=== PATIENT | female | born 1940 | race Caucasian/White ===

== ENCOUNTER → 2016-07-26 | Outpatient (CLI) | payer MEDICARE ==
[~2016-07-26] MED LIST: LISI-170 PO; LOVA10TA PO; MECL-76 PO; PROM25TA10 PO; WARF2.5T PO; ZOLP10TA PO
== END | disposition home or self-care (01) ==
LOC: WOUND 08:08
PROVIDERS: ATTEND Podiatrist Foot & Ankle Surgery
DX: I87.2 Venous insufficiency (chronic) (peripheral) (principal); L97.821 Non-pressure chronic ulcer of other part of left lower leg limited to breakdown of skin; L97.811 Non-pressure chronic ulcer of other part of right lower leg limited to breakdown of skin; K21.9 Gastro-esophageal reflux disease without esophagitis; I10 Essential (primary) hypertension; E78.00 Pure hypercholesterolemia, unspecified; J45.909 Unspecified asthma, uncomplicated; Z86.73 Personal history of transient ischemic attack (TIA), and cerebral infarction without residual deficits
CPT/HCPCS: 11042; 97597; G0463; WOU0463

== ENCOUNTER → 2016-08-01 | Outpatient (CLI) | payer MEDICARE | END | disposition home or self-care (01) | LOC: CFH 07:03 | PROVIDERS: ATTEND Podiatrist Foot & Ankle Surgery | DX: I86.8 Varicose veins of other specified sites (principal); K21.9 Gastro-esophageal reflux disease without esophagitis; L97.322 Non-pressure chronic ulcer of left ankle with fat layer exposed; L97.312 Non-pressure chronic ulcer of right ankle with fat layer exposed | CPT/HCPCS: 93922; 93925; 93970 ==

== ENCOUNTER → 2016-08-02 | Outpatient (CLI) | payer MEDICARE | END | disposition home or self-care (01) | LOC: WOUND 09:05 | PROVIDERS: ATTEND Podiatrist Foot & Ankle Surgery | DX: I87.333 Chronic venous hypertension (idiopathic) with ulcer and inflammation of bilateral lower extremity (principal); L97.822 Non-pressure chronic ulcer of other part of left lower leg with fat layer exposed; L97.812 Non-pressure chronic ulcer of other part of right lower leg with fat layer exposed; J45.909 Unspecified asthma, uncomplicated; E78.00 Pure hypercholesterolemia, unspecified; Z86.73 Personal history of transient ischemic attack (TIA), and cerebral infarction without residual deficits | CPT/HCPCS: 11042; 97597 ==

== ENCOUNTER → 2016-08-09 | Outpatient (CLI) | payer MEDICARE | END | disposition home or self-care (01) | LOC: WOUND 08:30 | PROVIDERS: ATTEND Podiatrist Foot & Ankle Surgery | DX: I87.333 Chronic venous hypertension (idiopathic) with ulcer and inflammation of bilateral lower extremity (principal); L97.812 Non-pressure chronic ulcer of other part of right lower leg with fat layer exposed; L97.822 Non-pressure chronic ulcer of other part of left lower leg with fat layer exposed; J45.909 Unspecified asthma, uncomplicated; E78.00 Pure hypercholesterolemia, unspecified; Z86.73 Personal history of transient ischemic attack (TIA), and cerebral infarction without residual deficits | CPT/HCPCS: 11042 ==

== ENCOUNTER → 2016-08-16 | Outpatient (CLI) | payer MEDICARE | END | disposition home or self-care (01) | LOC: WOUND 09:00 | PROVIDERS: ATTEND Podiatrist Foot & Ankle Surgery | DX: I87.333 Chronic venous hypertension (idiopathic) with ulcer and inflammation of bilateral lower extremity (principal); L97.812 Non-pressure chronic ulcer of other part of right lower leg with fat layer exposed; L97.822 Non-pressure chronic ulcer of other part of left lower leg with fat layer exposed; J45.909 Unspecified asthma, uncomplicated; E78.00 Pure hypercholesterolemia, unspecified; K21.9 Gastro-esophageal reflux disease without esophagitis; Z86.73 Personal history of transient ischemic attack (TIA), and cerebral infarction without residual deficits | CPT/HCPCS: 11042 ==

== ENCOUNTER → 2016-08-23 | Outpatient (CLI) | payer MEDICARE | END | disposition home or self-care (01) | LOC: WOUND 08:15 | PROVIDERS: ATTEND Podiatrist Foot & Ankle Surgery | DX: I87.333 Chronic venous hypertension (idiopathic) with ulcer and inflammation of bilateral lower extremity (principal); L97.812 Non-pressure chronic ulcer of other part of right lower leg with fat layer exposed; L97.822 Non-pressure chronic ulcer of other part of left lower leg with fat layer exposed; J45.909 Unspecified asthma, uncomplicated; E78.00 Pure hypercholesterolemia, unspecified; Z86.73 Personal history of transient ischemic attack (TIA), and cerebral infarction without residual deficits | CPT/HCPCS: 15271; Q4172 ==

== ENCOUNTER → 2016-08-30 | Outpatient (CLI) | payer MEDICARE | END | disposition home or self-care (01) | LOC: WOUND 08:15 | PROVIDERS: ATTEND Podiatrist Foot & Ankle Surgery | DX: I87.332 Chronic venous hypertension (idiopathic) with ulcer and inflammation of left lower extremity (principal); L97.822 Non-pressure chronic ulcer of other part of left lower leg with fat layer exposed; J45.909 Unspecified asthma, uncomplicated; E78.00 Pure hypercholesterolemia, unspecified; K21.9 Gastro-esophageal reflux disease without esophagitis; Z86.73 Personal history of transient ischemic attack (TIA), and cerebral infarction without residual deficits | CPT/HCPCS: 15271; Q4172 ==

== ENCOUNTER → 2016-09-06 | Outpatient (CLI) | payer MEDICARE | END | disposition home or self-care (01) | LOC: WOUND 08:24 | PROVIDERS: ATTEND Podiatrist Foot & Ankle Surgery | DX: I87.332 Chronic venous hypertension (idiopathic) with ulcer and inflammation of left lower extremity (principal); L97.822 Non-pressure chronic ulcer of other part of left lower leg with fat layer exposed; Z86.73 Personal history of transient ischemic attack (TIA), and cerebral infarction without residual deficits; E78.00 Pure hypercholesterolemia, unspecified; K21.9 Gastro-esophageal reflux disease without esophagitis; J45.909 Unspecified asthma, uncomplicated | CPT/HCPCS: 15271; Q4172 ==

== ENCOUNTER → 2016-09-13 | Outpatient (CLI) | payer MEDICARE | END | disposition home or self-care (01) | LOC: WOUND 08:21 | PROVIDERS: ATTEND Podiatrist Foot & Ankle Surgery | DX: I87.331 Chronic venous hypertension (idiopathic) with ulcer and inflammation of right lower extremity (principal); L97.812 Non-pressure chronic ulcer of other part of right lower leg with fat layer exposed; I10 Essential (primary) hypertension; K21.9 Gastro-esophageal reflux disease without esophagitis; E78.00 Pure hypercholesterolemia, unspecified; J45.909 Unspecified asthma, uncomplicated; Z86.73 Personal history of transient ischemic attack (TIA), and cerebral infarction without residual deficits | CPT/HCPCS: G0463; WOU0463 ==

== ENCOUNTER → 2016-10-15 | Outpatient (CLI) | payer MEDICARE | END | disposition home or self-care (01) | LOC: WOUND 15:47 | PROVIDERS: ATTEND Internal Medicine Cardiovascular Disease | DX: I87.332 Chronic venous hypertension (idiopathic) with ulcer and inflammation of left lower extremity (principal); L97.821 Non-pressure chronic ulcer of other part of left lower leg limited to breakdown of skin; J45.909 Unspecified asthma, uncomplicated; E78.00 Pure hypercholesterolemia, unspecified; I10 Essential (primary) hypertension; Z86.73 Personal history of transient ischemic attack (TIA), and cerebral infarction without residual deficits; K21.9 Gastro-esophageal reflux disease without esophagitis | CPT/HCPCS: 36475 ==

== ENCOUNTER → 2016-10-17 | Outpatient (CLI) | payer MEDICARE | END | disposition home or self-care (01) | LOC: CVU 12:45 | PROVIDERS: ATTEND Internal Medicine Cardiovascular Disease | DX: I87.2 Venous insufficiency (chronic) (peripheral) (principal) | CPT/HCPCS: 93971 ==

== ENCOUNTER → 2016-12-25 | Outpatient (CLI) | payer MEDICARE | END | disposition home or self-care (01) | LOC: WOUND 14:42 | PROVIDERS: ATTEND Internal Medicine Infectious Disease | DX: I87.331 Chronic venous hypertension (idiopathic) with ulcer and inflammation of right lower extremity (principal); L97.811 Non-pressure chronic ulcer of other part of right lower leg limited to breakdown of skin; S51.812A Laceration without foreign body of left forearm, initial encounter; Z79.52 Long term (current) use of systemic steroids; Z86.73 Personal history of transient ischemic attack (TIA), and cerebral infarction without residual deficits; X58.XXXA Exposure to other specified factors, initial encounter; Y93.89 Activity, other specified; Y92.89 Other specified places as the place of occurrence of the external cause; Y99.8 Other external cause status | CPT/HCPCS: G0463; WOU0463 ==

== ENCOUNTER → 2016-12-31 | Outpatient (CLI) | payer MEDICARE ==
[~2016-12-31] MED LIST changes: +GADOBUTROL 7.5 MMOL/7.5 ML PFS ONE
== END | disposition home or self-care (01) ==
LOC: RAD 13:05
DX: D44.7 Neoplasm of uncertain behavior of aortic body and other paraganglia (principal); E04.1 Nontoxic single thyroid nodule
CPT/HCPCS: 70543; A9585

== ENCOUNTER → 2017-01-15 | Outpatient (CLI) | payer MEDICARE ==
[~2017-01-15] MED LIST changes: -GADOBUTROL 7.5 MMOL/7.5 ML PFS ONE
== END | disposition home or self-care (01) ==
LOC: WOUND 10:56
PROVIDERS: ATTEND Internal Medicine
DX: I87.331 Chronic venous hypertension (idiopathic) with ulcer and inflammation of right lower extremity (principal); L97.811 Non-pressure chronic ulcer of other part of right lower leg limited to breakdown of skin; Z79.52 Long term (current) use of systemic steroids; Z86.73 Personal history of transient ischemic attack (TIA), and cerebral infarction without residual deficits
CPT/HCPCS: G0463; WOU0463

== ENCOUNTER → 2017-02-12 | Outpatient (CLI) | payer MEDICARE | END | disposition home or self-care (01) | LOC: WOUND 10:30 | PROVIDERS: ATTEND Internal Medicine | DX: S81.812D Laceration without foreign body, left lower leg, subsequent encounter (principal); I10 Essential (primary) hypertension; J45.909 Unspecified asthma, uncomplicated; E78.00 Pure hypercholesterolemia, unspecified; Z86.73 Personal history of transient ischemic attack (TIA), and cerebral infarction without residual deficits; X58.XXXD Exposure to other specified factors, subsequent encounter | CPT/HCPCS: G0463; WOU0463 ==

== ENCOUNTER → 2017-02-19 | Outpatient (CLI) | payer MEDICARE | END | disposition home or self-care (01) | LOC: WOUND 10:24 | PROVIDERS: ATTEND Internal Medicine | DX: S81.812D Laceration without foreign body, left lower leg, subsequent encounter (principal); I10 Essential (primary) hypertension; E78.00 Pure hypercholesterolemia, unspecified; J45.909 Unspecified asthma, uncomplicated; Z86.73 Personal history of transient ischemic attack (TIA), and cerebral infarction without residual deficits; X58.XXXD Exposure to other specified factors, subsequent encounter | CPT/HCPCS: 97597 ==

== ENCOUNTER → 2017-04-11 | Outpatient (CLI) | payer MEDICARE | END | disposition home or self-care (01) | LOC: CFH 08:40 → EDSTATUS 09:00 | PROVIDERS: ATTEND Physician Assistant | DX: I08.1 Rheumatic disorders of both mitral and tricuspid valves (principal); I10 Essential (primary) hypertension; J45.909 Unspecified asthma, uncomplicated; Z79.01 Long term (current) use of anticoagulants; Z86.73 Personal history of transient ischemic attack (TIA), and cerebral infarction without residual deficits | CPT/HCPCS: 93306 ==

== ENCOUNTER → 2017-06-14 | Outpatient (CLI) | payer MEDICARE ==
[~2017-06-14] MED LIST changes: +GADOBUTROL 7.5 MMOL/7.5 ML PFS ONE
== END | disposition home or self-care (01) ==
LOC: CFH 08:58
PROVIDERS: ATTEND Family Medicine
DX: G31.89 Other specified degenerative diseases of nervous system (principal); Z86.73 Personal history of transient ischemic attack (TIA), and cerebral infarction without residual deficits
CPT/HCPCS: 70553; 82565; A9585

== ENCOUNTER → 2017-08-21 | Outpatient (CLI) | payer MEDICARE ==
[~2017-08-21] MED LIST changes: -GADOBUTROL 7.5 MMOL/7.5 ML PFS ONE
== END | disposition home or self-care (01) ==
LOC: CFH 07:20
PROVIDERS: ATTEND Family Medicine
DX: M50.30 Other cervical disc degeneration, unspecified cervical region (principal); M48.02 Spinal stenosis, cervical region; M75.122 Complete rotator cuff tear or rupture of left shoulder, not specified as traumatic; M75.52 Bursitis of left shoulder
CPT/HCPCS: 72141

== ENCOUNTER → 2017-10-08 | Outpatient (CLI) | payer MEDICARE | END | disposition home or self-care (01) | LOC: WOUND 14:56 | PROVIDERS: ATTEND Nurse Practitioner Family | DX: I87.331 Chronic venous hypertension (idiopathic) with ulcer and inflammation of right lower extremity (principal); L97.212 Non-pressure chronic ulcer of right calf with fat layer exposed; J45.909 Unspecified asthma, uncomplicated; E78.00 Pure hypercholesterolemia, unspecified; Z86.73 Personal history of transient ischemic attack (TIA), and cerebral infarction without residual deficits; Z79.01 Long term (current) use of anticoagulants | CPT/HCPCS: 97597; 97598; G0463; WOU0463 ==

== ENCOUNTER → 2017-10-15 | Outpatient (CLI) | payer MEDICARE | END | disposition home or self-care (01) | LOC: WOUND 09:10 | PROVIDERS: ATTEND Internal Medicine Infectious Disease | DX: I87.331 Chronic venous hypertension (idiopathic) with ulcer and inflammation of right lower extremity (principal); L97.212 Non-pressure chronic ulcer of right calf with fat layer exposed; E78.00 Pure hypercholesterolemia, unspecified; J45.909 Unspecified asthma, uncomplicated; Z86.73 Personal history of transient ischemic attack (TIA), and cerebral infarction without residual deficits; Z79.01 Long term (current) use of anticoagulants | CPT/HCPCS: 11042; 11045 ==

== ENCOUNTER → 2017-10-22 | Outpatient (CLI) | payer MEDICARE | END | disposition home or self-care (01) | LOC: WOUND 08:46 | PROVIDERS: ATTEND Nurse Practitioner Family | DX: I87.331 Chronic venous hypertension (idiopathic) with ulcer and inflammation of right lower extremity (principal); L97.212 Non-pressure chronic ulcer of right calf with fat layer exposed; E78.00 Pure hypercholesterolemia, unspecified; J45.909 Unspecified asthma, uncomplicated; Z79.01 Long term (current) use of anticoagulants; Z86.73 Personal history of transient ischemic attack (TIA), and cerebral infarction without residual deficits | CPT/HCPCS: 15271; Q4172 ==

== ENCOUNTER → 2017-10-29 | Outpatient (CLI) | payer MEDICARE | END | disposition home or self-care (01) | LOC: WOUND 08:31 | PROVIDERS: ATTEND Nurse Practitioner Family | DX: I87.331 Chronic venous hypertension (idiopathic) with ulcer and inflammation of right lower extremity (principal); L97.212 Non-pressure chronic ulcer of right calf with fat layer exposed; E78.00 Pure hypercholesterolemia, unspecified; J45.909 Unspecified asthma, uncomplicated; Z79.01 Long term (current) use of anticoagulants; Z86.73 Personal history of transient ischemic attack (TIA), and cerebral infarction without residual deficits | CPT/HCPCS: 97597 ==

== ENCOUNTER → 2017-11-12 | Outpatient (CLI) | payer MEDICARE | END | disposition home or self-care (01) | LOC: WOUND 08:25 | PROVIDERS: ATTEND Internal Medicine Infectious Disease | DX: I87.331 Chronic venous hypertension (idiopathic) with ulcer and inflammation of right lower extremity (principal); L97.212 Non-pressure chronic ulcer of right calf with fat layer exposed; J45.909 Unspecified asthma, uncomplicated; E78.00 Pure hypercholesterolemia, unspecified; Z86.73 Personal history of transient ischemic attack (TIA), and cerebral infarction without residual deficits; Z79.01 Long term (current) use of anticoagulants | CPT/HCPCS: G0463; WOU0463 ==

== ENCOUNTER → 2017-11-19 | Outpatient (CLI) | payer MEDICARE | END | disposition home or self-care (01) | LOC: WOUND 08:37 | PROVIDERS: ATTEND Nurse Practitioner Family | DX: I87.331 Chronic venous hypertension (idiopathic) with ulcer and inflammation of right lower extremity (principal); L97.212 Non-pressure chronic ulcer of right calf with fat layer exposed; J45.909 Unspecified asthma, uncomplicated; E78.00 Pure hypercholesterolemia, unspecified; Z86.73 Personal history of transient ischemic attack (TIA), and cerebral infarction without residual deficits | CPT/HCPCS: 97597 ==

== ENCOUNTER → 2017-12-02 | Outpatient (CLI) | payer MEDICARE | END | disposition home or self-care (01) | LOC: CVU 08:43 | PROVIDERS: ATTEND Family Medicine | DX: I73.9 Peripheral vascular disease, unspecified (principal); I10 Essential (primary) hypertension | CPT/HCPCS: 93922 ==

== ENCOUNTER 2018-03-08 08:03 | Emergency (ER) | payer MEDICARE ==
[~2018-03-08] VITALS: Ht 162.6 cm; Wt 54.3 kg
[2018-03-08 09:06] LABS: BASOPHILS # (AUTO) 0.02 x10^3/uL (0-0.1); BASOPHILS % (AUTO) 0 % (0-1); EOSINOPHILS # (AUTO) 0.07 x10^3/uL (0-0.4); EOSINOPHILS % (AUTO) 1 % (1-7); LYMPHOCYTES # (AUTO) 0.48 x10^3/uL (1-3.4); LYMPHOCYTES % (AUTO) 10 % (22-44); MD NO; MEAN CORPUSCULAR HEMOGLOBIN 23.1 pg (27.0-34.8); MEAN CORPUSCULAR HGB CONC 31.3 g/dL (32.4-35.8); MEAN CORPUSCULAR VOLUME 73.9 fL (80-100); MEAN PLATELET VOLUME 6.8 fL (7.4-10.4); MONOCYTES # (AUTO) 0.53 x10^3/uL (0.2-0.8); MONOCYTES % (AUTO) 11 % (2-9); NEUTROPHILS # (AUTO) 3.72 x10^3/uL (1.8-6.8); NEUTROPHILS % (AUTO) 77 % (42-75); PLATELET COUNT 430 x10^3/uL (130-400); RED BLOOD COUNT 4.15 x10^6/uL (3.82-5.3); RED CELL DISTRIBUTION WIDTH 19.4 % (9.6-15.2)
[2018-03-08 09:11] LABS: INTERNATIONAL NORMALIZED RATIO 2.85 (0.93-1.1)
[2018-03-08 09:13] LABS: ALBUMIN 3.3 g/dL (3.4-5.0); ANION GAP 6 mmol/L (5-15); CALCIUM 8.1 mg/dL (8.5-10.1); CHLORIDE 103 mmol/L (98-107)
[2018-03-08 09:19] LABS: CREATININE 0.77 mg/dL (0.55-1.02); TROPONIN I < 0.015 ng/mL (0.000-0.045)
[2018-03-08 09:27] VITALS: BP 160/78
== END 2018-03-08 10:32 | disposition home or self-care (01) ==
LOC: ED 08:49
DX: B02.33 Zoster keratitis (principal); D50.0 Iron deficiency anemia secondary to blood loss (chronic); I10 Essential (primary) hypertension; Z86.73 Personal history of transient ischemic attack (TIA), and cerebral infarction without residual deficits
CPT/HCPCS: 36415; 71045; 80048; 82040; 84484; 85025; 85610; 93005; 99284

== ENCOUNTER 2018-03-09 21:31 | Inpatient (IN) | payer MEDICARE ==
[~2018-03-09] VITALS: Ht 162.6 cm; Wt 60.1 kg
[2018-03-09] MEDS ORDERED: ONDANSETRON 2MG/ML, 2ML ONE (22:14)
[2018-03-09] MEDS ORDERED: MORPHINE SULFATE 4 MG/ML, 1ML ONE (22:15)
[2018-03-09] MEDS ORDERED: ONDANSETRON 2MG/ML, 2ML IVPush ONE (22:30)
[2018-03-09] MEDS ORDERED: SODIUM CHLORIDE FLUSH 10ML SYR IVF ONE (22:30)
[2018-03-09] MEDS ORDERED: MORPHINE SULFATE 4 MG/ML, 1ML IVPush PRN (22:30)
[2018-03-09 22:32] LABS: BASOPHILS # (AUTO) 0.04 x10^3/uL (0-0.1); BASOPHILS % (AUTO) 0 % (0-1); EOSINOPHILS % (AUTO) 1 % (1-7); LYMPHOCYTES # (AUTO) 0.45 x10^3/uL (1-3.4); LYMPHOCYTES % (AUTO) 5 % (22-44); MD NO; MEAN CORPUSCULAR HEMOGLOBIN 23.3 pg (27.0-34.8); MEAN CORPUSCULAR HGB CONC 31.6 g/dL (32.4-35.8); MEAN CORPUSCULAR VOLUME 73.8 fL (80-100); MEAN PLATELET VOLUME 7.4 fL (7.4-10.4); MONOCYTES # (AUTO) 0.53 x10^3/uL (0.2-0.8); MONOCYTES % (AUTO) 5 % (2-9); NEUTROPHILS # (AUTO) 8.81 x10^3/uL (1.8-6.8); NEUTROPHILS % (AUTO) 89 % (42-75); PLATELET COUNT 390 x10^3/uL (130-400); RED BLOOD COUNT 4.02 x10^6/uL (3.82-5.3); RED CELL DISTRIBUTION WIDTH 18.7 % (9.6-15.2)
[2018-03-09 22:40] LABS: ALANINE AMINOTRANSFERASE 16 U/L (12-78); ALBUMIN 3.1 g/dL (3.4-5.0); ANION GAP 7 mmol/L (5-15); CALCIUM 8.1 mg/dL (8.5-10.1); CHLORIDE 100 mmol/L (98-107)
[2018-03-09 22:43] LABS: ALKALINE PHOSPHATASE 113 U/L (45-117); BILIRUBIN,TOTAL 0.4 mg/dL (0.2-1.0); CREATININE 0.78 mg/dL (0.55-1.02); TOTAL PROTEIN 6.2 g/dL (6.4-8.2)
[2018-03-09 22:46] LABS: TROPONIN I < 0.015 ng/mL (0.000-0.045)
[2018-03-09] MEDS ORDERED: SODIUM CHLORIDE 0.9% 1,000ML IVBOLUS ONE (23:00)
--- NOTE | 2018-03-09 23:08 | NUR ---
PT HAS SHINGLES ( BLISTERS UP 2 DAYS AGO ) TODAY PT HAS NAUSEA WITH VOMITTING WEAKNESS DIARRHEA . PT WAS SEEN FOR SAME ON SATURDAY
[2018-03-09 23:10] LABS: MICROSCOPIC INDICATED
[2018-03-09 23:12] LABS: CULTURE INDICATED? YES
[2018-03-09] MEDS ORDERED: OMNIPAQUE 350 MG/ML, 100ML BOTTLE ONE (23:15)
[2018-03-10] MEDS ORDERED: POLYETHYLENE GLYCOL 17 GM PACKET PO PRN
[2018-03-10] MEDS ORDERED: hydrALAzine 20 MG/ML, 1ML IVPush PRN
[2018-03-10 00:12] LABS: % IRON SATURATION 3 % (20-55); IRON LEVEL 11 mcg/dL (50-170); TOTAL IRON BINDING CAPACITY 369 mcg/dL (250-450)
[2018-03-10] MEDS ORDERED: DEXA0.5E2 PO (00:19)
--- NOTE | 2018-03-10 00:27 | NUR ---
AWAITING ADMIT BED AT THIS TIME
--- NOTE | 2018-03-10 00:51 | NUR ---
SURGICAL FLOOR CALLED FOR UPDATED ON BED. PT ON ISO FOR SHINGLES, THEY NEED TO MOVE PT CURRENTLY IN ROOM THEN CLEAN IT. SURGICAL SUP WILL NOTIFY ED WHEN BED IS READY
--- NOTE | 2018-03-10 02:31 | NUR ---
PT SLEEPING AWAITING ADMIT
--- NOTE | 2018-03-10 03:22 | NUR ---
REPORT CALLED TO SYEDA WAN TO FLOOR WITH TECH
--- NOTE | 2018-03-10 03:39 | NUR ---
Gigi marrufo in [place] - 03/10/18 at 0346 by CESAR Patient/Caregiver given discharge instructions and they have confirmed that they understand the instructions. Patient ambulatory with steady gait.
[2018-03-10 03:49] VITALS: BP 125/73
[2018-03-10] MEDS: SODIUM CHLORIDE 0.9% 1,000 ML IV SCH ×2 (04:40→15:56)
[2018-03-10] MEDS: ACYCLOVIR 800 MG TABLET PO SCH ×6 (05:42→21:00)
[2018-03-10 05:57] LABS: BASOPHILS # (AUTO) 0.02 x10^3/uL (0-0.1); BASOPHILS % (AUTO) 0 % (0-1); EOSINOPHILS # (AUTO) 0.19 x10^3/uL (0-0.4); EOSINOPHILS % (AUTO) 3 % (1-7); LYMPHOCYTES # (AUTO) 0.95 x10^3/uL (1-3.4); LYMPHOCYTES % (AUTO) 13 % (22-44); MD NO; MEAN CORPUSCULAR HEMOGLOBIN 23.3 pg (27.0-34.8); MEAN CORPUSCULAR HGB CONC 31.7 g/dL (32.4-35.8); MEAN CORPUSCULAR VOLUME 73.4 fL (80-100); MEAN PLATELET VOLUME 7.5 fL (7.4-10.4); MONOCYTES # (AUTO) 0.57 x10^3/uL (0.2-0.8); MONOCYTES % (AUTO) 8 % (2-9); NEUTROPHILS # (AUTO) 5.58 x10^3/uL (1.8-6.8); NEUTROPHILS % (AUTO) 76 % (42-75); PLATELET COUNT 333 x10^3/uL (130-400); RED BLOOD COUNT 3.48 x10^6/uL (3.82-5.3); RED CELL DISTRIBUTION WIDTH 19.2 % (9.6-15.2)
[2018-03-10 06:07] LABS: CHLORIDE 104 mmol/L (98-107)
[2018-03-10 06:16] LABS: ALANINE AMINOTRANSFERASE 14 U/L (12-78); ALBUMIN 2.8 g/dL (3.4-5.0); ALKALINE PHOSPHATASE 94 U/L (45-117); ANION GAP 6 mmol/L (5-15); BILIRUBIN,TOTAL 0.4 mg/dL (0.2-1.0); CALCIUM 7.6 mg/dL (8.5-10.1); CREATININE 0.63 mg/dL (0.55-1.02); TOTAL PROTEIN 5.4 g/dL (6.4-8.2)
[2018-03-10] MEDS: METRONIDAZOLE PMX 500MG/100ML 100 ML IV SCH ×3 (06:51→22:51)
[2018-03-10 07:50] VITALS: BP 119/71
[2018-03-10 08:30] LABS: IRON LEVEL 8 mcg/dL (50-170)
[2018-03-10 08:33] LABS: % IRON SATURATION 3 % (20-55); TOTAL IRON BINDING CAPACITY 301 mcg/dL (250-450)
--- NOTE | 2018-03-10 08:50 | NUR ---
Recommend: nectar-thick liquids, clear liquids per Swallow precaution sign posted at bedside. Addendum: 03/10/18 at 1250 by Kassie OSUNA Amended: Links added.
[2018-03-10] MEDS: CEFTRIAXONE PMX 1GM/50ML 50 ML IV SCH (09:29)
[2018-03-10] MEDS: IRON SUCROSE COMPLEX 100MG/5ML IV SCH (09:29)
[2018-03-10] MEDS: ONDANSETRON 2MG/ML, 2ML IVPush PRN ×2 (09:36→17:38)
[2018-03-10 10:31] LABS: FOLATE LEVEL > 20.0 ng/mL (3.1-17.5)
[2018-03-10 10:50] LABS: FREE T4 (FREE THYROXINE) 1.31 ng/dL (0.76-1.46)
[2018-03-10] MEDS ORDERED: DEXAMETHASONE 0.5 MG/5 ML ORAL SOL PO SCH (11:00)
[2018-03-10 12:06] LABS: INTERNATIONAL NORMALIZED RATIO 1.5 (0.93-1.1); PROTHROMBIN TIME 15.7 Seconds (9.6-11.5)
[2018-03-10] MEDS: ONDANSETRON ODT 4 MG PO PRN (12:16)
[2018-03-10] MEDS: PROMETHAZINE 25 MG/ML, 1ML IM PRN ×2 (12:39→20:02)
[2018-03-10] MEDS: GABAPENTIN 100 MG CAPSULE PO SCH ×3 (13:00→21:00)
[2018-03-10 14:22] VITALS: BP 126/75
[2018-03-10] MEDS ORDERED: WARFARIN 7.5 MG TABLET PO-COUM ONE (18:00)
[2018-03-10 19:14] LABS: CLOSTRIDIUM DIFFICILE ANTIGEN NEGATIVE; CLOSTRIDIUM DIFFICILE TOXIN NEGATIVE (Negative)
[2018-03-10 21:00] VITALS: BP 113/58
[2018-03-10] MEDS: LOVASTATIN 40 MG TABLET PO SCH (21:00)
[2018-03-10] MEDS: ZOLPIDEM 10MG TABLET PO SCH (21:00)
[2018-03-11 03:20] VITALS: BP 132/87
[2018-03-11] MEDS: SODIUM CHLORIDE 0.9% 1,000 ML IV SCH (03:34)
[2018-03-11] MEDS: ONDANSETRON 2MG/ML, 2ML IVPush PRN ×3 (03:34→21:27)
[2018-03-11 05:45] LABS: INTERNATIONAL NORMALIZED RATIO 1.57 (0.93-1.1); PROTHROMBIN TIME 16.4 Seconds (9.6-11.5)
[2018-03-11] MEDS: ACYCLOVIR 800 MG TABLET PO SCH ×5 (05:53→21:15)
[2018-03-11] MEDS: GABAPENTIN 100 MG CAPSULE PO SCH ×4 (05:53→21:15)
[2018-03-11] MEDS: METRONIDAZOLE PMX 500MG/100ML 100 ML IV SCH ×3 (05:53→21:27)
[2018-03-11 05:54] LABS: BASOPHILS # (AUTO) 0.03 x10^3/uL (0-0.1); BASOPHILS % (AUTO) 0 % (0-1); EOSINOPHILS # (AUTO) 0.28 x10^3/uL (0-0.4); EOSINOPHILS % (AUTO) 3 % (1-7); LYMPHOCYTES % (AUTO) 12 % (22-44); MD NO; MEAN CORPUSCULAR HEMOGLOBIN 23.5 pg (27.0-34.8); MEAN CORPUSCULAR VOLUME 73.4 fL (80-100); MEAN PLATELET VOLUME 7.7 fL (7.4-10.4); MONOCYTES # (AUTO) 0.71 x10^3/uL (0.2-0.8); MONOCYTES % (AUTO) 8 % (2-9); NEUTROPHILS # (AUTO) 6.81 x10^3/uL (1.8-6.8); NEUTROPHILS % (AUTO) 76 % (42-75); PLATELET COUNT 331 x10^3/uL (130-400); RED CELL DISTRIBUTION WIDTH 19.4 % (9.6-15.2)
[2018-03-11 05:58] LABS: ALBUMIN 2.3 g/dL (3.4-5.0); ANION GAP 6 mmol/L (5-15); CALCIUM 7.2 mg/dL (8.5-10.1); CHLORIDE 108 mmol/L (98-107)
[2018-03-11 06:01] LABS: ALANINE AMINOTRANSFERASE 14 U/L (12-78); ALKALINE PHOSPHATASE 85 U/L (45-117); BILIRUBIN,TOTAL 0.4 mg/dL (0.2-1.0); CREATININE 0.53 mg/dL (0.55-1.02); TOTAL PROTEIN 4.9 g/dL (6.4-8.2)
[2018-03-11 06:36] VITALS: BP 114/62
[2018-03-11] MEDS: POTASSIUM CHLORIDE 10 MEQ in D5%-0.45% NACL 1,000 ML IV SCH ×2 (08:36→21:14)
[2018-03-11] MEDS: ONDANSETRON ODT 4 MG PO PRN (08:37)
[2018-03-11] MEDS: IRON SUCROSE COMPLEX 100MG/5ML IV SCH (08:37)
[2018-03-11] MEDS: CEFTRIAXONE PMX 1GM/50ML 50 ML IV SCH (08:37)
[2018-03-11] MEDS: DEXAMETHASONE 1 MG TABLET PO SCH (08:37)
[2018-03-11] MEDS: LOPERAMIDE 2 MG CAPSULE PO PRN (10:09)
[2018-03-11 10:37] LABS: OCCULT BLOOD POSITIVE (NEGATIVE)
[2018-03-11] MEDS: PROMETHAZINE 25 MG/ML, 1ML IM PRN (12:39)
[2018-03-11 12:40] VITALS: BP 151/75
[2018-03-11] MEDS: PANTOPRAZOLE 40 MG IV IVPush SCH (17:07)
[2018-03-11] MEDS: MOVIPREP POWDER 1 PREP KIT PO SCH ×2 (17:08→18:24)
[2018-03-11 17:45] LABS: BASOPHILS # (AUTO) 0.02 x10^3/uL (0-0.1); BASOPHILS % (AUTO) 0 % (0-1); EOSINOPHILS # (AUTO) 0.14 x10^3/uL (0-0.4); EOSINOPHILS % (AUTO) 2 % (1-7); LYMPHOCYTES # (AUTO) 0.87 x10^3/uL (1-3.4); LYMPHOCYTES % (AUTO) 10 % (22-44); MD NO; MEAN CORPUSCULAR HEMOGLOBIN 23.4 pg (27.0-34.8); MEAN CORPUSCULAR HGB CONC 31.5 g/dL (32.4-35.8); MEAN CORPUSCULAR VOLUME 74.4 fL (80-100); MEAN PLATELET VOLUME 7.8 fL (7.4-10.4); MONOCYTES # (AUTO) 0.52 x10^3/uL (0.2-0.8); MONOCYTES % (AUTO) 6 % (2-9); NEUTROPHILS # (AUTO) 7.08 x10^3/uL (1.8-6.8); NEUTROPHILS % (AUTO) 82 % (42-75); PLATELET COUNT 350 x10^3/uL (130-400); RED BLOOD COUNT 3.54 x10^6/uL (3.82-5.3); RED CELL DISTRIBUTION WIDTH 19.3 % (9.6-15.2)
[2018-03-11] MEDS ORDERED: WARFARIN 7.5 MG TABLET PO-COUM ONE (18:00)
[2018-03-11 20:30] VITALS: BP 152/80
[2018-03-11] MEDS: ZOLPIDEM 10MG TABLET PO SCH (21:00)
[2018-03-11] MEDS: LOVASTATIN 40 MG TABLET PO SCH (21:15)
[2018-03-12 03:00] VITALS: BP 160/78
[2018-03-12] MEDS: PANTOPRAZOLE 40 MG IV IVPush SCH ×2 (04:13→17:21)
[2018-03-12] MEDS: ONDANSETRON 2MG/ML, 2ML IVPush PRN ×4 (04:13→21:18)
[2018-03-12] MEDS: MOVIPREP POWDER 1 PREP KIT PO SCH (04:43)
[2018-03-12] MEDS: GABAPENTIN 100 MG CAPSULE PO SCH ×4 (06:00→21:19)
[2018-03-12] MEDS: ACYCLOVIR 800 MG TABLET PO SCH ×5 (06:00→21:19)
[2018-03-12] MEDS: METRONIDAZOLE PMX 500MG/100ML 100 ML IV SCH ×3 (06:31→22:00)
[2018-03-12 06:33] LABS: BASOPHILS # (AUTO) 0.02 x10^3/uL (0-0.1); BASOPHILS % (AUTO) 0 % (0-1); EOSINOPHILS % (AUTO) 3 % (1-7); LYMPHOCYTES # (AUTO) 1.19 x10^3/uL (1-3.4); LYMPHOCYTES % (AUTO) 17 % (22-44); MD NO; MEAN CORPUSCULAR HEMOGLOBIN 23.5 pg (27.0-34.8); MEAN CORPUSCULAR HGB CONC 31.5 g/dL (32.4-35.8); MEAN CORPUSCULAR VOLUME 74.7 fL (80-100); MEAN PLATELET VOLUME 7.3 fL (7.4-10.4); MONOCYTES # (AUTO) 0.52 x10^3/uL (0.2-0.8); MONOCYTES % (AUTO) 8 % (2-9); NEUTROPHILS # (AUTO) 4.95 x10^3/uL (1.8-6.8); NEUTROPHILS % (AUTO) 72 % (42-75); PLATELET COUNT 355 x10^3/uL (130-400); RED CELL DISTRIBUTION WIDTH 18.5 % (9.6-15.2)
[2018-03-12 06:45] LABS: INTERNATIONAL NORMALIZED RATIO 3.3 (0.93-1.1); PROTHROMBIN TIME 33.4 Seconds (9.6-11.5)
[2018-03-12 06:50] LABS: ALANINE AMINOTRANSFERASE 14 U/L (12-78); ALBUMIN 2.5 g/dL (3.4-5.0); ANION GAP 5 mmol/L (5-15); CALCIUM 7.8 mg/dL (8.5-10.1); CHLORIDE 113 mmol/L (98-107); CREATININE 0.64 mg/dL (0.55-1.02)
[2018-03-12 06:53] VITALS: BP 166/83
[2018-03-12 06:53] LABS: ALKALINE PHOSPHATASE 85 U/L (45-117); BILIRUBIN,TOTAL 0.2 mg/dL (0.2-1.0); TOTAL PROTEIN 5.4 g/dL (6.4-8.2)
[2018-03-12] MEDS ORDERED: HOLD COUMADIN MC PRN (08:30)
[2018-03-12] MEDS: POTASSIUM CHLORIDE 10 MEQ in D5%-0.45% NACL 1,000 ML IV SCH ×2 (08:40→23:00)
[2018-03-12] MEDS: IRON SUCROSE COMPLEX 100MG/5ML IV SCH (08:41)
[2018-03-12] MEDS: CEFTRIAXONE PMX 1GM/50ML 50 ML IV SCH (08:41)
[2018-03-12] MEDS: DEXAMETHASONE 1 MG TABLET PO SCH ×2 (08:41→21:19)
[2018-03-12] MEDS ORDERED: PROPOFOL 10 MG/ML, 50ML ONE (11:46)
[2018-03-12] MEDS ORDERED: PROPOFOL 10 MG/ML, 20ML ONE (11:46)
[2018-03-12] MEDS ORDERED: POTASSIUM CHLORIDE 60 MEQ in SODIUM CHLORIDE 0.9% 1,000 ML IV ONE (12:00)
[2018-03-12 13:54] VITALS: BP 181/98
[2018-03-12] MEDS: PROMETHAZINE 25 MG/ML, 1ML IM PRN ×2 (15:18→21:31)
[2018-03-12] MEDS: morphine SULFATE 10 MG/ML, 1ML IVPush PRN ×2 (15:18→15:28)
[2018-03-12 21:10] VITALS: BP 101/58
[2018-03-12] MEDS: LOVASTATIN 40 MG TABLET PO SCH (21:19)
[2018-03-12] MEDS: ZOLPIDEM 10MG TABLET PO SCH (21:31)
[2018-03-13 02:14] VITALS: BP 150/80
[2018-03-13] MEDS: METRONIDAZOLE PMX 500MG/100ML 100 ML IV SCH ×3 (05:05→20:30)
[2018-03-13] MEDS: ONDANSETRON 2MG/ML, 2ML IVPush PRN (05:05)
[2018-03-13 05:46] LABS: BASOPHILS % (AUTO) 0 % (0-1); EOSINOPHILS % (AUTO) 0 % (1-7); LYMPHOCYTES # (AUTO) 0.82 x10^3/uL (1-3.4); LYMPHOCYTES % (AUTO) 11 % (22-44); MD NO; MEAN CORPUSCULAR HEMOGLOBIN 23.7 pg (27.0-34.8); MEAN CORPUSCULAR HGB CONC 31.9 g/dL (32.4-35.8); MEAN CORPUSCULAR VOLUME 74.2 fL (80-100); MEAN PLATELET VOLUME 7.6 fL (7.4-10.4); MONOCYTES # (AUTO) 0.17 x10^3/uL (0.2-0.8); MONOCYTES % (AUTO) 2 % (2-9); NEUTROPHILS # (AUTO) 6.21 x10^3/uL (1.8-6.8); NEUTROPHILS % (AUTO) 86 % (42-75); PLATELET COUNT 419 x10^3/uL (130-400); RED BLOOD COUNT 3.48 x10^6/uL (3.82-5.3); RED CELL DISTRIBUTION WIDTH 19.3 % (9.6-15.2)
[2018-03-13 05:53] LABS: INTERNATIONAL NORMALIZED RATIO 5.42 (0.93-1.1); PROTHROMBIN TIME 53.8 Seconds (9.6-11.5)
[2018-03-13] MEDS: ACYCLOVIR 800 MG TABLET PO SCH ×5 (06:11→21:53)
[2018-03-13] MEDS: GABAPENTIN 100 MG CAPSULE PO SCH ×4 (06:11→20:10)
[2018-03-13] MEDS: PANTOPRAZOLE 40 MG IV IVPush SCH (06:11)
[2018-03-13 06:25] LABS: CHLORIDE 110 mmol/L (98-107)
[2018-03-13 07:11] LABS: ALANINE AMINOTRANSFERASE 16 U/L (12-78); ALBUMIN 2.7 g/dL (3.4-5.0); ALKALINE PHOSPHATASE 89 U/L (45-117); ANION GAP 8 mmol/L (5-15); BILIRUBIN,TOTAL 0.3 mg/dL (0.2-1.0); CALCIUM 7.9 mg/dL (8.5-10.1); CREATININE 0.71 mg/dL (0.55-1.02); TOTAL PROTEIN 5.6 g/dL (6.4-8.2)
[2018-03-13 07:44] VITALS: BP 167/75
[2018-03-13] MEDS: IRON SUCROSE COMPLEX 100MG/5ML IV SCH (08:50)
[2018-03-13] MEDS: CEFTRIAXONE PMX 1GM/50ML 50 ML IV SCH (08:50)
[2018-03-13] MEDS ORDERED: PHYTONADIONE 5 MG TABLET PO ONE (10:00)
[2018-03-13 15:45] VITALS: BP 148/77
[2018-03-13] MEDS: POTASSIUM CHLORIDE 10 MEQ in D5%-0.45% NACL 1,000 ML IV SCH (15:48)
[2018-03-13] MEDS: LOVASTATIN 40 MG TABLET PO SCH (20:10)
[2018-03-13] MEDS: PANTOPRAZOLE 20MG TABLET PO SCH (20:10)
[2018-03-13] MEDS: DEXAMETHASONE 1 MG TABLET PO SCH (20:10)
[2018-03-13] MEDS: ZOLPIDEM 10MG TABLET PO SCH (20:10)
[2018-03-13 20:11] VITALS: BP 146/73
[2018-03-14 01:37] VITALS: BP 132/76
[2018-03-14] MEDS: POTASSIUM CHLORIDE 10 MEQ in D5%-0.45% NACL 1,000 ML IV SCH ×2 (03:05→16:41)
[2018-03-14] MEDS: METRONIDAZOLE PMX 500MG/100ML 100 ML IV SCH ×3 (04:32→20:39)
[2018-03-14 04:58] LABS: BASOPHILS # (AUTO) 0.01 x10^3/uL (0-0.1); BASOPHILS % (AUTO) 0 % (0-1); EOSINOPHILS # (AUTO) 0.21 x10^3/uL (0-0.4); EOSINOPHILS % (AUTO) 3 % (1-7); LYMPHOCYTES # (AUTO) 0.95 x10^3/uL (1-3.4); LYMPHOCYTES % (AUTO) 14 % (22-44); MD NO; MEAN CORPUSCULAR HEMOGLOBIN 23.5 pg (27.0-34.8); MEAN CORPUSCULAR HGB CONC 31.7 g/dL (32.4-35.8); MEAN CORPUSCULAR VOLUME 74.1 fL (80-100); MEAN PLATELET VOLUME 7.6 fL (7.4-10.4); MONOCYTES # (AUTO) 0.37 x10^3/uL (0.2-0.8); MONOCYTES % (AUTO) 5 % (2-9); NEUTROPHILS # (AUTO) 5.27 x10^3/uL (1.8-6.8); NEUTROPHILS % (AUTO) 77 % (42-75); PLATELET COUNT 380 x10^3/uL (130-400); RED BLOOD COUNT 3.35 x10^6/uL (3.82-5.3); RED CELL DISTRIBUTION WIDTH 19.4 % (9.6-15.2)
[2018-03-14 05:02] LABS: INTERNATIONAL NORMALIZED RATIO 3.49 (0.93-1.1); PROTHROMBIN TIME 35.3 Seconds (9.6-11.5)
[2018-03-14 05:07] LABS: ALBUMIN 2.5 g/dL (3.4-5.0); ANION GAP 7 mmol/L (5-15); CALCIUM 7.7 mg/dL (8.5-10.1); CHLORIDE 107 mmol/L (98-107)
[2018-03-14 05:09] LABS: CREATININE 0.61 mg/dL (0.55-1.02)
[2018-03-14] MEDS: GABAPENTIN 100 MG CAPSULE PO SCH ×4 (05:45→20:38)
[2018-03-14] MEDS: PANTOPRAZOLE 20MG TABLET PO SCH ×2 (05:45→20:38)
[2018-03-14] MEDS: ACYCLOVIR 800 MG TABLET PO SCH ×5 (05:45→20:37)
[2018-03-14 07:45] VITALS: BP 152/83
[2018-03-14] MEDS: IRON SUCROSE COMPLEX 100MG/5ML IV SCH (09:13)
[2018-03-14] MEDS: CEFTRIAXONE PMX 1GM/50ML 50 ML IV SCH (09:13)
[2018-03-14 12:20] VITALS: BP 176/97
[2018-03-14 13:42] VITALS: BP 145/71
[2018-03-14] MEDS: ACETAMINOPHEN 325 MG TABLET PO PRN (13:44)
[2018-03-14] MEDS ORDERED: WARFARIN 2 MG TABLET PO-COUM ONE (16:14)
[2018-03-14] MEDS: ONDANSETRON ODT 4 MG PO PRN ×2 (16:42→20:51)
[2018-03-14] MEDS ORDERED: WARFARIN 1 MG TABLET PO-COUM SCH (18:00)
[2018-03-14 18:48] VITALS: BP 170/97
[2018-03-14] MEDS: LOVASTATIN 40 MG TABLET PO SCH (20:38)
[2018-03-14] MEDS: DEXAMETHASONE 1 MG TABLET PO SCH (20:38)
[2018-03-14] MEDS: ZOLPIDEM 10MG TABLET PO SCH (20:38)
[2018-03-15 02:03] VITALS: BP 143/78
[2018-03-15] MEDS: POTASSIUM CHLORIDE 10 MEQ in D5%-0.45% NACL 1,000 ML IV SCH ×3 (02:11→22:53)
[2018-03-15] MEDS: GABAPENTIN 100 MG CAPSULE PO SCH ×4 (05:05→21:04)
[2018-03-15] MEDS: PANTOPRAZOLE 20MG TABLET PO SCH ×2 (05:06→21:04)
[2018-03-15] MEDS: ACYCLOVIR 800 MG TABLET PO SCH ×5 (05:06→21:04)
[2018-03-15] MEDS: METRONIDAZOLE PMX 500MG/100ML 100 ML IV SCH ×3 (05:06→21:03)
[2018-03-15 05:33] LABS: INTERNATIONAL NORMALIZED RATIO 2.08 (0.93-1.1); PROTHROMBIN TIME 21.4 Seconds (9.6-11.5)
[2018-03-15 06:51] VITALS: BP 198/98
[2018-03-15 08:55] LABS: ALANINE AMINOTRANSFERASE 15 U/L (12-78); ALBUMIN 2.6 g/dL (3.4-5.0); ANION GAP 5 mmol/L (5-15); CALCIUM 7.7 mg/dL (8.5-10.1); CHLORIDE 108 mmol/L (98-107)
[2018-03-15 08:58] LABS: ALKALINE PHOSPHATASE 93 U/L (45-117); BILIRUBIN,TOTAL 0.2 mg/dL (0.2-1.0); TOTAL PROTEIN 5.3 g/dL (6.4-8.2)
[2018-03-15] MEDS: CEFTRIAXONE PMX 1GM/50ML 50 ML IV SCH (09:03)
[2018-03-15] MEDS: DEXAMETHASONE 1 MG TABLET PO SCH (09:03)
[2018-03-15 10:29] LABS: BASOPHILS # (AUTO) 0.07 x10^3/uL (0-0.1); BASOPHILS % (AUTO) 1 % (0-1); EOSINOPHILS # (AUTO) 0.07 x10^3/uL (0-0.4); EOSINOPHILS % (AUTO) 1 % (1-7); LYMPHOCYTES # (AUTO) 0.96 x10^3/uL (1-3.4); LYMPHOCYTES % (AUTO) 16 % (22-44); MD NO; MEAN CORPUSCULAR HGB CONC 31.8 g/dL (32.4-35.8); MEAN CORPUSCULAR VOLUME 75.5 fL (80-100); MEAN PLATELET VOLUME 7.8 fL (7.4-10.4); MONOCYTES # (AUTO) 0.48 x10^3/uL (0.2-0.8); MONOCYTES % (AUTO) 8 % (2-9); NEUTROPHILS # (AUTO) 4.54 x10^3/uL (1.8-6.8); NEUTROPHILS % (AUTO) 74 % (42-75); PLATELET COUNT 400 x10^3/uL (130-400); RED BLOOD COUNT 3.32 x10^6/uL (3.82-5.3); RED CELL DISTRIBUTION WIDTH 19.8 % (9.6-15.2)
[2018-03-15] MEDS: ONDANSETRON 2MG/ML, 2ML IVPush PRN (11:20)
[2018-03-15] MEDS: ACETAMINOPHEN 325 MG TABLET PO PRN (11:20)
[2018-03-15 14:00] LABS: MICROSCOPIC AUTO
[2018-03-15 14:01] LABS: CULTURE INDICATED? YES
[2018-03-15 14:36] VITALS: BP 143/76
[2018-03-15] MEDS ORDERED: WARFARIN 3 MG TABLET PO-COUM SCH (18:00)
[2018-03-15 19:32] VITALS: BP 154/79
[2018-03-15] MEDS: ZOLPIDEM 10MG TABLET PO SCH (21:04)
[2018-03-15] MEDS: LOVASTATIN 40 MG TABLET PO SCH (21:04)
[2018-03-16 00:58] VITALS: BP 151/72
[2018-03-16 05:32] LABS: BASOPHILS # (AUTO) 0.03 x10^3/uL (0-0.1); BASOPHILS % (AUTO) 1 % (0-1); EOSINOPHILS # (AUTO) 0.26 x10^3/uL (0-0.4); EOSINOPHILS % (AUTO) 4 % (1-7); LYMPHOCYTES # (AUTO) 1.27 x10^3/uL (1-3.4); LYMPHOCYTES % (AUTO) 21 % (22-44); MD NO; MEAN CORPUSCULAR HEMOGLOBIN 24.1 pg (27.0-34.8); MEAN CORPUSCULAR VOLUME 75.3 fL (80-100); MEAN PLATELET VOLUME 6.9 fL (7.4-10.4); MONOCYTES # (AUTO) 0.67 x10^3/uL (0.2-0.8); MONOCYTES % (AUTO) 11 % (2-9); NEUTROPHILS # (AUTO) 3.84 x10^3/uL (1.8-6.8); NEUTROPHILS % (AUTO) 63 % (42-75); PLATELET COUNT 455 x10^3/uL (130-400); RED BLOOD COUNT 3.69 x10^6/uL (3.82-5.3)
[2018-03-16 05:39] LABS: INTERNATIONAL NORMALIZED RATIO 1.87 (0.93-1.1); PROTHROMBIN TIME 19.4 Seconds (9.6-11.5)
[2018-03-16] MEDS: GABAPENTIN 100 MG CAPSULE PO SCH ×4 (05:39→22:46)
[2018-03-16] MEDS: PANTOPRAZOLE 20MG TABLET PO SCH ×2 (05:39→22:47)
[2018-03-16] MEDS: METRONIDAZOLE PMX 500MG/100ML 100 ML IV SCH (05:39)
[2018-03-16] MEDS: ACYCLOVIR 800 MG TABLET PO SCH ×5 (05:39→22:45)
[2018-03-16 05:43] LABS: ALBUMIN 2.8 g/dL (3.4-5.0); ANION GAP 5 mmol/L (5-15); CALCIUM 8.1 mg/dL (8.5-10.1); CHLORIDE 106 mmol/L (98-107)
[2018-03-16 05:49] LABS: ALANINE AMINOTRANSFERASE 16 U/L (12-78); ALKALINE PHOSPHATASE 93 U/L (45-117); BILIRUBIN,TOTAL 0.3 mg/dL (0.2-1.0); CREATININE 0.62 mg/dL (0.55-1.02); TOTAL PROTEIN 5.8 g/dL (6.4-8.2)
[2018-03-16 07:48] VITALS: BP 156/91
[2018-03-16] MEDS: CEFTRIAXONE PMX 1GM/50ML 50 ML IV SCH (09:08)
[2018-03-16] MEDS: POTASSIUM CHLORIDE 10 MEQ in D5%-0.45% NACL 1,000 ML IV SCH (09:08)
[2018-03-16] MEDS: DEXAMETHASONE 1 MG TABLET PO SCH (09:08)
[2018-03-16] MEDS ORDERED: FERROUS SULFATE 325 MG TABLET PO SCH (10:00)
[2018-03-16] MEDS ORDERED: ACETAMINOPHEN 325 MG TABLET PO PRN (10:00)
[2018-03-16] MEDS: SODIUM CHLORIDE 0.9% 1,000 ML IV SCH (10:24)
[2018-03-16] MEDS: LACTOBACILLUS CHEW TABLET PO SCH ×3 (10:30→22:45)
[2018-03-16] MEDS ORDERED: MORPHINE SULFATE 4 MG/ML, 1ML IVPush PRN (12:00)
[2018-03-16] MEDS: ONDANSETRON 2MG/ML, 2ML IVPush PRN (12:09)
[2018-03-16 12:54] VITALS: BP 154/76
[2018-03-16] MEDS: PROMETHAZINE 25 MG/ML, 1ML IM PRN (13:14)
[2018-03-16] MEDS: LOPERAMIDE 2 MG CAPSULE PO PRN (13:14)
[2018-03-16] MEDS: CARVEDILOL 3.125 MG TABLET PO SCH (17:03)
[2018-03-16] MEDS ORDERED: WARFARIN 2 MG TABLET PO-COUM SCH (18:00)
[2018-03-16 19:14] VITALS: BP 100/55
[2018-03-16] MEDS: LOVASTATIN 40 MG TABLET PO SCH (22:46)
[2018-03-16] MEDS: ZOLPIDEM 10MG TABLET PO SCH (22:46)
[2018-03-17 00:56] VITALS: BP 111/65
[2018-03-17] MEDS: SODIUM CHLORIDE 0.9% 1,000 ML IV SCH (01:48)
[2018-03-17] MEDS: LACTOBACILLUS CHEW TABLET PO SCH ×3 (04:44→15:50)
[2018-03-17] MEDS: PANTOPRAZOLE 20MG TABLET PO SCH (04:45)
[2018-03-17] MEDS: GABAPENTIN 100 MG CAPSULE PO SCH ×3 (04:45→15:50)
[2018-03-17] MEDS: CARVEDILOL 3.125 MG TABLET PO SCH (04:45)
[2018-03-17] MEDS: ACYCLOVIR 800 MG TABLET PO SCH ×3 (04:45→15:50)
[2018-03-17 06:08] LABS: INTERNATIONAL NORMALIZED RATIO 2.66 (0.93-1.1); PROTHROMBIN TIME 27.2 Seconds (9.6-11.5)
[2018-03-17 07:03] VITALS: BP 138/85
[2018-03-17] MEDS ORDERED: DEXAMETHASONE 1 MG TABLET PO SCH (09:00)
[2018-03-17] MEDS ORDERED: CARV3.1212 PO (10:57)
[2018-03-17] MEDS ORDERED: LOPE2CAP PO (10:57)
[2018-03-17] MEDS ORDERED: PANT20TA3 PO (10:57)
[2018-03-17] MEDS ORDERED: ONDA4TAB13 PO ×2 (10:57)
[2018-03-17] MEDS ORDERED: FERR-51 PO (10:57)
[2018-03-17] MEDS ORDERED: ACID1TAB7 PO (10:57)
[2018-03-17] MEDS ORDERED: ACET325T14 PO (10:57)
[2018-03-17 12:53] VITALS: BP 136/83
[2018-03-17] MEDS ORDERED: WARFARIN 3 MG TABLET PO-COUM ONE (18:00)
== END 2018-03-17 17:18 | disposition home or self-care (01) | DRG 394 ==
LOC: ED 23:08 → SUATTDRO 23:50 → EDIP 23:51 → 4NOR 03-10 03:39
PROVIDERS: ADMIT Hospitalist; ATTEND Hospitalist
PROC: 0DBL8ZX Excision of Transverse Colon, Via Natural or Artificial Opening Endoscopic, Diagnostic (ICD-10-PCS; 2018-03-12)
PROC: 0DB68ZX Excision of Stomach, Via Natural or Artificial Opening Endoscopic, Diagnostic (ICD-10-PCS; principal; 2018-03-12 10:00)
DX: K55.039 Acute (reversible) ischemia of large intestine, extent unspecified (principal); B02.33 Zoster keratitis; M48.54XA Collapsed vertebra, not elsewhere classified, thoracic region, initial encounter for fracture; E44.0 Moderate protein-calorie malnutrition; E87.1 Hypo-osmolality and hyponatremia; J98.11 Atelectasis; D18.03 Hemangioma of intra-abdominal structures; R91.1 Solitary pulmonary nodule; K44.9 Diaphragmatic hernia without obstruction or gangrene; D50.9 Iron deficiency anemia, unspecified; D89.9 Disorder involving the immune mechanism, unspecified; E78.5 Hyperlipidemia, unspecified; E87.6 Hypokalemia; I10 Essential (primary) hypertension; K29.80 Duodenitis without bleeding; K57.30 Diverticulosis of large intestine without perforation or abscess without bleeding; K80.20 Calculus of gallbladder without cholecystitis without obstruction; Z79.52 Long term (current) use of systemic steroids; Z79.01 Long term (current) use of anticoagulants; Z86.73 Personal history of transient ischemic attack (TIA), and cerebral infarction without residual deficits; Z68.22 Body mass index [BMI] 22.0-22.9, adult
CPT/HCPCS: 36415; 70450; 71046; 74018; 74177; 80048; 80053; 81001; 82040; 82272; 82607; 82728; 82746; 83540; 83550; 83735; 84100; 84439; 84443; 84481; 84484; 85025; 85610; 87040; 87086; 87324; 88305; 89055; 93005; 96374; 96375; G0378; J0696; J1756; J2405; J2550; J2704; J3480; Q0162; Q9967; C9113; J0360; J2270; J7030

== ENCOUNTER 2018-03-23 19:20 | Inpatient (IN) | payer MEDICARE ==
[~2018-03-23] VITALS: Ht 162.6 cm; Wt 53.6 kg
[~2018-03-23 19:20] MED LIST changes: +ACET325T14 PO; +ACID1TAB7 PO; +CARV3.1212 PO; +DEXA0.5E2 PO; +FERR-51 PO; +LOPE2CAP PO; +ONDA4TAB13 PO; +PANT20TA3 PO
--- NOTE | 2018-03-23 19:31 | NUR ---
PT TO ROOM FROM TRIAGE.
--- NOTE | 2018-03-23 19:42 | NUR ---
PT REPORTS HAVING N/V AND ABD PAIN, PT STATES "MY WHOLE STOMACH ACHES." PT FAMILY STATES PT WAS ADMITTED LAST WEEK FOR SAME, PT WAS TAKING NARCOTICS THAT MADE HER CONSTIPATED WHICH WAS CHANGED TO GABAPENTIN WHILE IN THE HOSPITAL. PER PT SON PT WAS DX WITH INTESTINAL INFECTIONS FOR WHICH SHE WAS TREATED FOR WHILE IN THE HOSPITAL WELL. PT HAVING N/V THIS AM, TOOK A ZOFRAN ODT AT 0500 AND 0900 THIS AM THEN RAN OUT. PT STATES ZOFRAN ODT EFFECTIVE WHEN SHE TAKES IT. PT FAMILY STATES PT KEEPING DOWN LITTLE BITS OF ICE CHIPS BUT IS HAVING EMESIS THAT LOOKS LIKE PHLEGM. PT DRY HEAVING IN ROOM, EMESIS BAG GIVEN. PT AWAITING MD DIAMOND. WILL MONITOR.
--- NOTE | 2018-03-23 19:55 | NUR ---
PROVIDER TO BEDSIDE FOR PT EVAL.
[2018-03-23] MEDS ORDERED: SODIUM CHLORIDE 0.9% 1,000 ML IV ONE (20:14)
[2018-03-23] MEDS ORDERED: SODIUM CHLORIDE 0.9% 1,000ML IVBOLUS ONE (20:30)
[2018-03-23] MEDS ORDERED: SODIUM CHLORIDE FLUSH 10ML SYR IVF ONE (20:30)
[2018-03-23] MEDS ORDERED: METOCLOPRAMIDE 5 MG/ML, 2ML IVPush ONE (20:30)
[2018-03-23 20:42] LABS: BASOPHILS # (AUTO) 0.07 x10^3/uL (0-0.1); BASOPHILS % (AUTO) 1 % (0-1); EOSINOPHILS % (AUTO) 2 % (1-7); LYMPHOCYTES # (AUTO) 0.83 x10^3/uL (1-3.4); LYMPHOCYTES % (AUTO) 15 % (22-44); MD MORPH REVIEW ONLY; MEAN CORPUSCULAR HEMOGLOBIN 24.1 pg (27.0-34.8); MEAN CORPUSCULAR HGB CONC 30.1 g/dL (32.4-35.8); MONOCYTES % (AUTO) 7 % (2-9); NEUTROPHILS # (AUTO) 4.09 x10^3/uL (1.8-6.8); NEUTROPHILS % (AUTO) 75 % (42-75); PLATELET COUNT 660 x10^3/uL (130-400); RED BLOOD COUNT 4.48 x10^6/uL (3.82-5.3); RED CELL DISTRIBUTION WIDTH 27.9 % (9.6-15.2)
[2018-03-23] MEDS ORDERED: METOCLOPRAMIDE 5 MG/ML, 2ML ONE (20:52)
[2018-03-23 20:54] LABS: ALANINE AMINOTRANSFERASE 20 U/L (12-78); ALBUMIN 3.1 g/dL (3.4-5.0); ANION GAP 6 mmol/L (5-15); CALCIUM 7.9 mg/dL (8.5-10.1); CHLORIDE 102 mmol/L (98-107); CREATININE 0.72 mg/dL (0.55-1.02)
[2018-03-23 20:56] LABS: ALKALINE PHOSPHATASE 120 U/L (45-117); ANISOCYTOSIS 2+; BILIRUBIN,TOTAL 0.3 mg/dL (0.2-1.0); TOTAL PROTEIN 6.4 g/dL (6.4-8.2)
[2018-03-23 20:57] LABS: HYPOCHROMIA 1+; POLYCHROMASIA 1+
[2018-03-23 20:58] LABS: MICROCYTOSIS 1+
[2018-03-23 20:59] LABS: <PLATELET ESTIMATE> INCREASED; <PLT MORPHOLOGY> NORMAL PLT MORPH
[2018-03-23 21:00] LABS: LARGE PLATELETS 1+
--- NOTE | 2018-03-23 21:06 | NUR ---
IV PLACED, MED GIVEN PER ORDERS, SEE EMAR. NS INFUSING WITHOUT DIFFICULTY. PT RESTING COMFORTABLY WITH FAMILY AT BEDSIDE. PT PLACED ON CARDIAC AND VS MONITORING. CALL LIGHT IN REACH.
--- NOTE | 2018-03-23 21:20 | NUR ---
COAG STUDY REDRAWN R/T FIRST COAG CLOTTED PER LAB. PT RESTING, WILL MONITOR FOR NAUSEA IMPROVEMENT. NO DRY HEAVING AT THIS TIME. VSS. FAMILY AT BEDSIDE. NS INFUSING. CALL LIGHT IN REACH.
[2018-03-23 21:30] LABS: INTERNATIONAL NORMALIZED RATIO 1.27 (0.93-1.1); PROTHROMBIN TIME 13.3 Seconds (9.6-11.5)
--- NOTE | 2018-03-23 21:44 | NUR ---
URINE COLLECTED VIA STRAIGHT CATH PER ORDERS, STERILE TECHNIQUED USED AND MAINTAINED. URINE SENT TO LAB. PT RESTING, STATES NAUSEA NOT BETTER. MD TO BE NOTIFIED. PT CONTINUES ON MONITOR.
[2018-03-23 21:52] LABS: MICROSCOPIC NOT IND
[2018-03-23 21:58] LABS: CULTURE INDICATED? NO
--- NOTE | 2018-03-23 22:02 | NUR ---
PROVIDER NOTIFIED OF CONTINUES NAUSEA, AND PT REQUEST FOR PAIN MED. AWAITING ORDERS.
[2018-03-23] MEDS ORDERED: ONDANSETRON 2MG/ML, 2ML ONE (22:11)
[2018-03-23] MEDS ORDERED: MORPHINE SULFATE 4 MG/ML, 1ML ONE (22:12)
--- NOTE | 2018-03-23 22:21 | NUR ---
PT RECIEVED MEDS PER ORDERS, SEE EMAR. FIRST 500 BOLUS OF NS COMPLETE. 250MLS/HR NS STARTED. PT RESTING, CONTINUES ON MONITOR. CALL LIGHT IN REACH. WILL MONITOR FOR MED EFFECTIVENESS.
[2018-03-23] MEDS ORDERED: ONDANSETRON 2MG/ML, 2ML IVPush ONE (22:30)
[2018-03-23] MEDS ORDERED: MORPHINE SULFATE 4 MG/ML, 1ML IVPush PRN (22:30)
--- NOTE | 2018-03-23 22:39 | NUR ---
NS CONTINKRISTINAS, APPROX 300MLS REMAINING. VSS. WILL MONITOR. Addendum: 03/23/18 at 2240 by DANNI DISREGARD, THIS NOTE NOT FOR THIS PT.
--- NOTE | 2018-03-23 22:40 | NUR ---
NS INFUSING WITHOUT DIFFICULTY AT 250MLS/HR.
--- NOTE | 2018-03-23 23:12 | NUR ---
PT USED BED VEGA WITHOUT DIFFICULTY. BEDDING CHANGED, CHUCKS PLACED UNDER PT FOR ANY URINE SPILLS IN THE FUTHER. FAMILY CONTINUES AT BEDSIDE. PT REPORTS PAIN AND NAUSEA IS IMPROVING. PT APPEARS MORE COMFORTABLE. PT HR SINUS IN THE 90'S WITH OCCATIONAL PVC'S. PT BP ELEVATED, PT STATES SHE TAKES BP MEDS AT NIGHT AND HAS NOT TAKEN HER BP MEDS TONIGHT. NS CONTINUES TO INFUSE WITHOUT DIFFICULTY. WILL MONITOR.
--- NOTE | 2018-03-23 23:18 | NUR ---
MD JOHNSON AWARE OF BP.
--- NOTE | 2018-03-23 23:47 | NUR ---
[facility] TO BEDSIDE FOR EVAL.
--- NOTE | 2018-03-23 23:58 | NUR ---
REPORT TO ANNA DREW. PT TO GO TO ROOM.
[2018-03-24] MEDS ORDERED: ACETAMINOPHEN 325 MG TABLET PO PRN
[2018-03-24] MEDS ORDERED: LIDODERM 5% PATCH TD PRN
[2018-03-24] MEDS ORDERED: TEMAZEPAM 15 MG CAPSULE PO PRN
[2018-03-24] MEDS ORDERED: BISACODYL 10 MG SUPP PR PRN
[2018-03-24] MEDS ORDERED: hydrALAzine 20 MG/ML, 1ML IVPush PRN
[2018-03-24] MEDS ORDERED: ONDANSETRON 2MG/ML, 2ML IVPush PRN
[2018-03-24] MEDS ORDERED: GABAPENTIN 300 MG CAPSULE PO PRN
[2018-03-24 00:16] VITALS: BP 165/101
[2018-03-24] MEDS ORDERED: ZOLPIDEM 10MG TABLET PO SCH (00:30)
[2018-03-24] MEDS ORDERED: FERROUS SULFATE 325 MG TABLET PO SCH (00:30)
[2018-03-24] MEDS ORDERED: ONDANSETRON ODT 4 MG PO PRN (00:30)
[2018-03-24] MEDS ORDERED: LOVASTATIN 40 MG TABLET PO SCH (00:30)
[2018-03-24] MEDS: LACTOBACILLUS CHEW TABLET PO SCH ×3 (01:02→16:30)
[2018-03-24] MEDS: SODIUM CHLORIDE 0.9% 1,000 ML IV SCH ×2 (01:02→09:40)
[2018-03-24 02:31] VITALS: BP 164/100
[2018-03-24 05:27] LABS: MEAN CORPUSCULAR HEMOGLOBIN 24.7 pg (27.0-34.8); MEAN CORPUSCULAR VOLUME 79.9 fL (80-100); MEAN PLATELET VOLUME 7.3 fL (7.4-10.4); PLATELET COUNT 578 x10^3/uL (130-400); RED BLOOD COUNT 3.88 x10^6/uL (3.82-5.3); RED CELL DISTRIBUTION WIDTH 27.7 % (9.6-15.2)
[2018-03-24 05:29] LABS: CHLORIDE 107 mmol/L (98-107)
[2018-03-24 05:37] LABS: ANION GAP 6 mmol/L (5-15); CALCIUM 7.9 mg/dL (8.5-10.1); CREATININE 0.55 mg/dL (0.55-1.02)
[2018-03-24] MEDS ORDERED: PANTOPRAZOLE 20MG TABLET PO SCH (06:00)
[2018-03-24] MEDS ORDERED: CARVEDILOL 3.125 MG TABLET PO SCH (06:00)
[2018-03-24 06:13] LABS: BASOPHILS # (AUTO) 0.03 x10^3/uL (0-0.1); BASOPHILS % (AUTO) 1 % (0-1); EOSINOPHILS # (AUTO) 0.05 x10^3/uL (0-0.4); EOSINOPHILS % (AUTO) 1 % (1-7); LYMPHOCYTES # (AUTO) 1.02 x10^3/uL (1-3.4); LYMPHOCYTES % (AUTO) 23 % (22-44); MD SCAN; MONOCYTES % (AUTO) 9 % (2-9); NEUTROPHILS # (AUTO) 2.92 x10^3/uL (1.8-6.8); NEUTROPHILS % (AUTO) 66 % (42-75)
[2018-03-24 06:42] VITALS: BP 118/72
[2018-03-24] MEDS ORDERED: DEXAMETHASONE 1 MG TABLET PO SCH (09:00)
[2018-03-24] MEDS ORDERED: GABAPENTIN 250 MG/5 ML ORAL SOL PO SCH (11:00)
[2018-03-24] MEDS ORDERED: GABA250S3 PO (12:01)
[2018-03-24] MEDS ORDERED: LIDO700A20 TD (12:01)
[2018-03-24] MEDS ORDERED: ONDA4TAB13 PO (12:01)
[2018-03-24 12:25] VITALS: BP 135/81
[2018-03-24] MEDS ORDERED: WARFARIN 7.5 MG TABLET PO-COUM ONE (18:00)
== END 2018-03-24 16:50 | disposition home or self-care (01) | DRG 73 ==
LOC: ED 19:47 → EDIP 23:31 → 3NW 03-24 00:07
PROVIDERS: ADMIT Internal Medicine; ATTEND Internal Medicine
PROC: 0T9B70Z Drainage of Bladder with Drainage Device, Via Natural or Artificial Opening (ICD-10-PCS; principal; 2018-03-23)
DX: B02.29 Other postherpetic nervous system involvement (principal); E43 Unspecified severe protein-calorie malnutrition; J94.2 Hemothorax; R11.2 Nausea with vomiting, unspecified; R19.7 Diarrhea, unspecified; R13.10 Dysphagia, unspecified; Z68.20 Body mass index [BMI] 20.0-20.9, adult; B02.9 Zoster without complications; E78.5 Hyperlipidemia, unspecified; I10 Essential (primary) hypertension; K59.00 Constipation, unspecified; Z86.73 Personal history of transient ischemic attack (TIA), and cerebral infarction without residual deficits
CPT/HCPCS: 36415; 80048; 80053; 81003; 83605; 83690; 85025; 85610; 96361; 96374; 96375; 99285; J2405; Q0162; J2765; J7030

== ENCOUNTER 2018-04-03 12:03 | Inpatient (IN) | payer MEDICARE ==
[~2018-04-03] VITALS: Ht 162.6 cm; Wt 52.4 kg
[~2018-04-03 12:03] MED LIST changes: +GABA250S3 PO; +LIDO700A20 TD
--- NOTE | 2018-04-03 12:45 | NUR ---
SON STATED THAT PT WENT TO THE MD TODAY AND SHE WAS SENT TO THE ED DUE TO HER CXR, HER LOW OXYGEN, WHEEZING, DECREASED INTAKE, NAUSEA, AND NO BM IN 7 DAYS. PT WAS GIVEN A PHENERGRAN SHOT AT MDS OFFICE AND REPORTS NAUSEA IS BETTER. PT IS ALERT, ORIENTED, WITH NAD. PT IS CONNECTED TO THE MONITOR. CALL LIGHT WITHIN REACH.
[2018-04-03 13:21] LABS: MICROSCOPIC AUTO
[2018-04-03] MEDS ORDERED: ONDANSETRON 2MG/ML, 2ML IVPush ONE (13:30)
[2018-04-03] MEDS ORDERED: PROMETHAZINE 25 MG/ML, 1ML IM ONE (13:30)
[2018-04-03] MEDS ORDERED: SODIUM CHLORIDE FLUSH 10ML SYR IVF ONE (13:30)
[2018-04-03] MEDS ORDERED: SODIUM CHLORIDE 0.9% 1,000ML IVBOLUS ONE (13:30)
--- NOTE | 2018-04-03 13:30 | NUR ---
PT STATED THAT SHE DOES NOT WANT ZOFRAN AT THIS TIME. SHE WILL LET THE NURSE KNOW WHEN SHE WANTS IT.
[2018-04-03 13:33] LABS: CULTURE INDICATED? YES
[2018-04-03] MEDS ORDERED: GABAPENTIN 300 MG CAPSULE PO ONE (13:34)
--- NOTE | 2018-04-03 13:34 | NUR ---
PT STATED THAT PT IS DUE FOR HER GABAPENTIN AND TRAMADOL. INFORMED .
[2018-04-03] MEDS ORDERED: GABAPENTIN 300 MG CAPSULE ONE (13:36)
[2018-04-03 13:51] LABS: INTERNATIONAL NORMALIZED RATIO 1.67 (0.93-1.1); PROTHROMBIN TIME 17.4 Seconds (9.6-11.5)
[2018-04-03 13:52] LABS: ALANINE AMINOTRANSFERASE 15 U/L (12-78); ANION GAP 4 mmol/L (5-15); CALCIUM 8.9 mg/dL (8.5-10.1); CHLORIDE 102 mmol/L (98-107); CREATININE 0.73 mg/dL (0.55-1.02)
[2018-04-03 13:55] LABS: ALKALINE PHOSPHATASE 130 U/L (45-117); BILIRUBIN,TOTAL 0.5 mg/dL (0.2-1.0); TOTAL PROTEIN 6.7 g/dL (6.4-8.2)
--- NOTE | 2018-04-03 13:55 | NUR ---
pt medicated per order.
[2018-04-03 14:09] LABS: MEAN CORPUSCULAR HEMOGLOBIN 25.3 pg (27.0-34.8); MEAN CORPUSCULAR HGB CONC 30.8 g/dL (32.4-35.8); MEAN CORPUSCULAR VOLUME 82.1 fL (80-100); MEAN PLATELET VOLUME 7.6 fL (7.4-10.4); PLATELET COUNT 368 x10^3/uL (130-400); RED BLOOD COUNT 4.76 x10^6/uL (3.82-5.3); RED CELL DISTRIBUTION WIDTH 28.1 % (9.6-15.2)
--- NOTE | 2018-04-03 14:10 | NUR ---
TASK RN: PT RESTING ON GURNEY. NADN. RAYMONDS. FAMILY REMAINS AT BEDSIDE.
[2018-04-03] MEDS ORDERED: DOCU100C33 PO (14:17)
[2018-04-03] MEDS ORDERED: TRAM50TA2 PO (14:17)
[2018-04-03] MEDS ORDERED: PANT20TA3 PO (14:17)
[2018-04-03] MEDS ORDERED: DEXA0.5E2 PO (14:17)
[2018-04-03 14:34] LABS: BASOPHILS # (AUTO) 0.03 x10^3/uL (0-0.1); BASOPHILS % (AUTO) 1 % (0-1); EOSINOPHILS # (AUTO) 0.15 x10^3/uL (0-0.4); EOSINOPHILS % (AUTO) 3 % (1-7); LYMPHOCYTES # (AUTO) 0.73 x10^3/uL (1-3.4); LYMPHOCYTES % (AUTO) 13 % (22-44); MD MORPH REVIEW ONLY; MONOCYTES # (AUTO) 0.43 x10^3/uL (0.2-0.8); MONOCYTES % (AUTO) 8 % (2-9); NEUTROPHILS # (AUTO) 4.25 x10^3/uL (1.8-6.8); NEUTROPHILS % (AUTO) 76 % (42-75)
[2018-04-03 14:36] LABS: ANISOCYTOSIS 2+; HYPOCHROMIA 2+; MICROCYTOSIS 2+
[2018-04-03 14:37] LABS: <PLATELET ESTIMATE> ADEQUATE; <PLT MORPHOLOGY> NORMAL PLT MORPH
--- NOTE | 2018-04-03 14:46 | NUR ---
Report given to Kaden DREW.
[2018-04-03 15:17] VITALS: BP 189/106
[2018-04-03 16:02] VITALS: BP 170/90
[2018-04-03] MEDS ORDERED: ACETAMINOPHEN 325 MG TABLET PO PRN (16:30)
[2018-04-03] MEDS ORDERED: WARFARIN 5 MG TABLET PO-COUM ONE (17:00)
[2018-04-03] MEDS ORDERED: hydrALAzine 20 MG/ML, 1ML IV PRN (17:00)
[2018-04-03] MEDS: CARVEDILOL 3.125 MG TABLET PO SCH (17:11)
[2018-04-03] MEDS: LACTOBACILLUS CHEW TABLET PO SCH ×2 (17:11→22:38)
[2018-04-03] MEDS: FERROUS SULFATE 325 MG TABLET PO SCH (17:11)
[2018-04-03] MEDS: GUAIFENESIN 200 MG TABLET PO SCH ×2 (17:12→22:38)
[2018-04-03] MEDS: POLYETHYLENE GLYCOL 17 GM PACKET PO PRN (17:12)
[2018-04-03] MEDS: NS + 20MEQ KCL 1,000 ML IV SCH (17:43)
[2018-04-03] MEDS: ONDANSETRON 4 MG TABLET PO PRN (17:43)
[2018-04-03] MEDS: PROMETHAZINE 25 MG/ML, 1ML IM PRN (18:25)
[2018-04-03 18:43] VITALS: BP 166/93
[2018-04-03] MEDS: BISACODYL 10 MG SUPP PR PRN (20:52)
[2018-04-03] MEDS: ONDANSETRON 2MG/ML, 2ML IVPush PRN (22:02)
[2018-04-03] MEDS: LOVASTATIN 40 MG TABLET PO SCH (22:38)
[2018-04-03] MEDS: DEXAMETHASONE 1 MG TABLET PO SCH (22:38)
[2018-04-03] MEDS: GABAPENTIN 250 MG/5 ML ORAL SOL PO SCH (22:38)
[2018-04-03] MEDS: MIRTAZAPINE 15 MG TABLET PO SCH (22:39)
[2018-04-03] MEDS: PANTOPRAZOLE 20MG TABLET PO SCH (22:40)
[2018-04-03] MEDS: LIDODERM 5% PATCH TD PRN (23:52)
[2018-04-04 00:25] VITALS: BP 189/94
[2018-04-04 01:35] VITALS: BP 179/83
[2018-04-04] MEDS: PROMETHAZINE 25 MG/ML, 1ML IM PRN ×2 (01:45→08:28)
[2018-04-04 02:28] VITALS: BP 136/79
[2018-04-04] MEDS: NS + 20MEQ KCL 1,000 ML IV SCH (03:52)
[2018-04-04] MEDS: ONDANSETRON 2MG/ML, 2ML IVPush PRN (03:56)
[2018-04-04 04:44] LABS: INTERNATIONAL NORMALIZED RATIO 1.91 (0.93-1.1); PROTHROMBIN TIME 19.7 Seconds (9.6-11.5)
[2018-04-04 04:45] LABS: MEAN CORPUSCULAR HEMOGLOBIN 26.1 pg (27.0-34.8); MEAN CORPUSCULAR HGB CONC 31.8 g/dL (32.4-35.8); MEAN CORPUSCULAR VOLUME 82.1 fL (80-100); MEAN PLATELET VOLUME 7.7 fL (7.4-10.4); PLATELET COUNT 345 x10^3/uL (130-400); RED BLOOD COUNT 4.49 x10^6/uL (3.82-5.3); RED CELL DISTRIBUTION WIDTH 28.7 % (9.6-15.2)
[2018-04-04 04:48] LABS: ANION GAP 5 mmol/L (5-15); CALCIUM 8.7 mg/dL (8.5-10.1); CHLORIDE 107 mmol/L (98-107)
[2018-04-04 04:59] LABS: CREATININE 0.65 mg/dL (0.55-1.02); THYROID STIMULATING HORMONE 0.516 mIU/L (0.358-3.740)
[2018-04-04 05:50] LABS: BASOPHILS # (AUTO) 0.02 x10^3/uL (0-0.1); BASOPHILS % (AUTO) 0 % (0-1); EOSINOPHILS # (AUTO) 0.02 x10^3/uL (0-0.4); EOSINOPHILS % (AUTO) 0 % (1-7); LYMPHOCYTES # (AUTO) 0.63 x10^3/uL (1-3.4); LYMPHOCYTES % (AUTO) 8 % (22-44); MD SCAN; MONOCYTES # (AUTO) 0.16 x10^3/uL (0.2-0.8); MONOCYTES % (AUTO) 2 % (2-9); NEUTROPHILS # (AUTO) 6.81 x10^3/uL (1.8-6.8); NEUTROPHILS % (AUTO) 89 % (42-75)
[2018-04-04] MEDS: PANTOPRAZOLE 20MG TABLET PO SCH ×2 (06:11→20:40)
[2018-04-04] MEDS: GUAIFENESIN 200 MG TABLET PO SCH ×4 (06:19→20:34)
[2018-04-04] MEDS: CARVEDILOL 3.125 MG TABLET PO SCH (06:19)
[2018-04-04 06:43] VITALS: BP 153/85
[2018-04-04] MEDS ORDERED: PANTOPRAZOLE 40 MG IV IVPush SCH (07:30)
[2018-04-04] MEDS: LACTOBACILLUS CHEW TABLET PO SCH ×3 (08:13→20:34)
[2018-04-04] MEDS: SENNA/DOCUSATE TABLET PO SCH (08:13)
[2018-04-04] MEDS: GABAPENTIN 250 MG/5 ML ORAL SOL PO SCH (08:13)
[2018-04-04] MEDS: DEXAMETHASONE 1 MG TABLET PO SCH ×2 (08:13→20:38)
[2018-04-04] MEDS: POLYETHYLENE GLYCOL 17 GM PACKET PO PRN (08:13)
[2018-04-04] MEDS ORDERED: DEXAMETHASONE 0.5 MG/5 ML ORAL SOL PO SCH (09:00)
[2018-04-04 13:38] VITALS: BP 132/81
[2018-04-04] MEDS ORDERED: GABAPENTIN 250 MG/5 ML ORAL SOL PO PRN ×2 (14:30→15:00)
[2018-04-04] MEDS ORDERED: BISACODYL 10 MG SUPP PR PRN (14:30)
--- NOTE | 2018-04-04 15:52 | NUR ---
REC: Pureed diet with NTL; turn head right for all po; crush meds Addendum: 04/04/18 at 1552 by Ligia OSUNA Amended: Links added.
[2018-04-04] MEDS: PROMETHAZINE 25MG TABLET PO PRN (16:10)
[2018-04-04] MEDS: CARVEDILOL 6.25 MG TABLET PO SCH (17:12)
[2018-04-04] MEDS ORDERED: WARFARIN 5 MG TABLET PO-COUM ONE (18:00)
[2018-04-04 18:51] VITALS: BP 131/69
[2018-04-04] MEDS: LOVASTATIN 40 MG TABLET PO SCH (20:34)
[2018-04-04] MEDS: BISACODYL 10 MG SUPP PR PRN (20:35)
[2018-04-04] MEDS: LIDODERM 5% PATCH TD PRN (20:40)
[2018-04-04] MEDS: MIRTAZAPINE 15 MG TABLET PO SCH (20:40)
[2018-04-05 02:06] VITALS: BP 176/96
[2018-04-05 03:37] VITALS: BP 155/82
[2018-04-05] MEDS: PANTOPRAZOLE 20MG TABLET PO SCH ×2 (05:48→21:10)
[2018-04-05] MEDS: GUAIFENESIN 200 MG TABLET PO SCH ×4 (05:49→21:11)
[2018-04-05] MEDS: CARVEDILOL 6.25 MG TABLET PO SCH ×2 (05:51→17:15)
[2018-04-05 06:47] LABS: INTERNATIONAL NORMALIZED RATIO 3.58 (0.93-1.1); PROTHROMBIN TIME 36.1 Seconds (9.6-11.5)
[2018-04-05 07:10] VITALS: BP 121/69
[2018-04-05] MEDS: DEXAMETHASONE 1 MG TABLET PO SCH ×2 (08:53→21:11)
[2018-04-05] MEDS: SENNA/DOCUSATE TABLET PO SCH (08:53)
[2018-04-05] MEDS: LACTOBACILLUS CHEW TABLET PO SCH ×3 (08:58→21:10)
[2018-04-05] MEDS: POLYETHYLENE GLYCOL 17 GM PACKET PO PRN (11:38)
[2018-04-05 14:00] VITALS: BP 148/83
[2018-04-05] MEDS ORDERED: GABAPENTIN 250 MG/5 ML ORAL SOL PO PRN (16:30)
[2018-04-05] MEDS ORDERED: HOLD MEDICATION MC PRN (17:00)
[2018-04-05] MEDS: FERROUS SULFATE 325 MG TABLET PO SCH (17:22)
[2018-04-05 19:08] VITALS: BP 168/88
[2018-04-05] MEDS: LIDODERM 5% PATCH TD PRN (21:09)
[2018-04-05] MEDS: MELATONIN 3 MG TABLET PO PRN (21:11)
[2018-04-05] MEDS: LOVASTATIN 40 MG TABLET PO SCH (21:11)
[2018-04-05] MEDS: MIRTAZAPINE 15 MG TABLET PO SCH (21:11)
[2018-04-06 03:45] VITALS: BP 187/92
[2018-04-06 05:18] LABS: INTERNATIONAL NORMALIZED RATIO 3.37 (0.93-1.1); PROTHROMBIN TIME 34.1 Seconds (9.6-11.5)
[2018-04-06 05:23] LABS: CHLORIDE 105 mmol/L (98-107)
[2018-04-06 05:31] LABS: ALANINE AMINOTRANSFERASE 15 U/L (12-78); ALKALINE PHOSPHATASE 109 U/L (45-117); ANION GAP 8 mmol/L (5-15); BILIRUBIN,TOTAL 0.6 mg/dL (0.2-1.0); CALCIUM 8.5 mg/dL (8.5-10.1); TOTAL PROTEIN 6.2 g/dL (6.4-8.2)
[2018-04-06 05:38] VITALS: BP 172/83
[2018-04-06] MEDS: GUAIFENESIN 200 MG TABLET PO SCH ×4 (05:39→21:58)
[2018-04-06] MEDS: PANTOPRAZOLE 20MG TABLET PO SCH ×2 (05:39→21:58)
[2018-04-06] MEDS: CARVEDILOL 6.25 MG TABLET PO SCH ×2 (05:39→19:13)
[2018-04-06] MEDS: BISACODYL 10 MG SUPP PR PRN (05:45)
[2018-04-06] MEDS: ONDANSETRON 4 MG TABLET PO PRN ×2 (05:45→09:24)
[2018-04-06 08:48] VITALS: BP 102/63
[2018-04-06] MEDS: LISINOPRIL 5 MG TABLET PO SCH ×2 (09:00→09:24)
[2018-04-06] MEDS: DEXAMETHASONE 1 MG TABLET PO SCH (09:23)
[2018-04-06] MEDS: LACTOBACILLUS CHEW TABLET PO SCH ×3 (09:23→21:58)
[2018-04-06] MEDS: SENNA/DOCUSATE TABLET PO SCH (09:23)
[2018-04-06 13:45] VITALS: BP 155/93
[2018-04-06] MEDS ORDERED: GABAPENTIN 100 MG CAPSULE PO PRN (15:00)
[2018-04-06] MEDS ORDERED: LIDOCAINE 4% CREAM 5GM TUBE TP PRN (15:00)
[2018-04-06] MEDS: POLYETHYLENE GLYCOL 17 GM PACKET PO PRN (15:44)
[2018-04-06] MEDS: GABAPENTIN 300 MG CAPSULE PO SCH ×2 (15:44→21:58)
[2018-04-06] MEDS ORDERED: GABAPENTIN 250 MG/5 ML ORAL SOL PO SCH (16:00)
[2018-04-06] MEDS ORDERED: WARFARIN 1 MG TABLET PO-COUM ONE (18:00)
[2018-04-06 19:06] VITALS: BP 153/83
[2018-04-06] MEDS: LOVASTATIN 40 MG TABLET PO SCH (21:58)
[2018-04-06] MEDS: MIRTAZAPINE 15 MG TABLET PO SCH (21:58)
[2018-04-06] MEDS: LIDODERM 5% PATCH TD PRN (21:58)
[2018-04-06] MEDS: MELATONIN 3 MG TABLET PO PRN (21:59)
[2018-04-06] MEDS: LACTULOSE 20 GM/30 ML UDC PO SCH ×2 (22:00→22:07)
[2018-04-07 02:22] VITALS: BP 101/63
[2018-04-07 04:57] LABS: ANION GAP 6 mmol/L (5-15); CALCIUM 8.8 mg/dL (8.5-10.1); CHLORIDE 105 mmol/L (98-107); INTERNATIONAL NORMALIZED RATIO 2.68 (0.93-1.1); PROTHROMBIN TIME 27.4 Seconds (9.6-11.5)
[2018-04-07] MEDS: PANTOPRAZOLE 20MG TABLET PO SCH ×2 (05:36→20:17)
[2018-04-07] MEDS: GUAIFENESIN 200 MG TABLET PO SCH ×4 (05:36→20:17)
[2018-04-07] MEDS: CARVEDILOL 6.25 MG TABLET PO SCH ×2 (05:37→17:40)
[2018-04-07 07:26] VITALS: BP 101/61
[2018-04-07] MEDS: LISINOPRIL 5 MG TABLET PO SCH (09:00)
[2018-04-07] MEDS ORDERED: GADOBUTROL 7.5 MMOL/7.5 ML PFS ONE (10:27)
[2018-04-07] MEDS: LACTOBACILLUS CHEW TABLET PO SCH ×3 (10:48→20:17)
[2018-04-07] MEDS: DEXAMETHASONE 1 MG TABLET PO SCH (10:48)
[2018-04-07] MEDS: GABAPENTIN 300 MG CAPSULE PO SCH ×3 (10:48→20:17)
[2018-04-07] MEDS: ONDANSETRON 2MG/ML, 2ML IVPush PRN (10:48)
[2018-04-07] MEDS: SENNA/DOCUSATE TABLET PO SCH (10:49)
[2018-04-07] MEDS: LACTULOSE 20 GM/30 ML UDC PO SCH ×2 (10:50→20:23)
[2018-04-07 12:59] VITALS: BP 113/66
[2018-04-07] MEDS: PROMETHAZINE 25MG TABLET PO PRN (15:17)
[2018-04-07] MEDS ORDERED: OMNIPAQUE 350 MG/ML, 100ML BOTTLE ONE (16:08)
[2018-04-07] MEDS: SODIUM CHLORIDE 0.9% 1,000 ML IV SCH (17:38)
[2018-04-07] MEDS ORDERED: WARFARIN 2.5 MG TABLET PO-COUM ONE (18:00)
[2018-04-07] MEDS ORDERED: AMOXICILLIN/CLAV 500-125MG TABLET PO SCH (18:30)
[2018-04-07 18:37] LABS: MEAN CORPUSCULAR HEMOGLOBIN 25.9 pg (27.0-34.8); MEAN CORPUSCULAR HGB CONC 31.4 g/dL (32.4-35.8); MEAN CORPUSCULAR VOLUME 82.4 fL (80-100); PLATELET COUNT 321 x10^3/uL (130-400); RED BLOOD COUNT 4.47 x10^6/uL (3.82-5.3); RED CELL DISTRIBUTION WIDTH 27.9 % (9.6-15.2)
[2018-04-07 19:16] LABS: BASOPHILS # (AUTO) 0.03 x10^3/uL (0-0.1); BASOPHILS % (AUTO) 0 % (0-1); EOSINOPHILS # (AUTO) 0.06 x10^3/uL (0-0.4); EOSINOPHILS % (AUTO) 1 % (1-7); LYMPHOCYTES # (AUTO) 0.83 x10^3/uL (1-3.4); LYMPHOCYTES % (AUTO) 9 % (22-44); MD MORPH REVIEW ONLY; MONOCYTES # (AUTO) 0.44 x10^3/uL (0.2-0.8); MONOCYTES % (AUTO) 5 % (2-9); NEUTROPHILS # (AUTO) 8.12 x10^3/uL (1.8-6.8); NEUTROPHILS % (AUTO) 86 % (42-75)
[2018-04-07 19:28] LABS: ANISOCYTOSIS 2+; MICROCYTOSIS 1+
[2018-04-07 19:32] LABS: <PLATELET ESTIMATE> ADEQUATE; <PLT MORPHOLOGY> NORMAL PLT MORPH; HYPOCHROMIA 1+
[2018-04-07 19:34] VITALS: BP 107/65
[2018-04-07] MEDS: AMPICILLIN/SULBACTAM 3 GM in SODIUM CHLORIDE 0.9% 100 ML IV SCH (20:06)
[2018-04-07] MEDS: MIRTAZAPINE 15 MG TABLET PO SCH (20:17)
[2018-04-07] MEDS: LOVASTATIN 40 MG TABLET PO SCH (20:17)
[2018-04-07] MEDS: LIDODERM 5% PATCH TD PRN (20:20)
[2018-04-07] MEDS: MELATONIN 3 MG TABLET PO PRN (20:38)
[2018-04-08 02:14] VITALS: BP 105/60
[2018-04-08] MEDS: AMPICILLIN/SULBACTAM 3 GM in SODIUM CHLORIDE 0.9% 100 ML IV SCH ×2 (02:25→08:05)
[2018-04-08] MEDS: SODIUM CHLORIDE 0.9% 1,000 ML IV SCH (04:46)
[2018-04-08 04:47] LABS: INTERNATIONAL NORMALIZED RATIO 2.86 (0.93-1.1); PROTHROMBIN TIME 29.1 Seconds (9.6-11.5)
[2018-04-08 04:49] LABS: ALBUMIN 2.5 g/dL (3.4-5.0); ANION GAP 5 mmol/L (5-15); CALCIUM 7.9 mg/dL (8.5-10.1); CHLORIDE 110 mmol/L (98-107); CREATININE 0.66 mg/dL (0.55-1.02)
[2018-04-08] MEDS: GUAIFENESIN 200 MG TABLET PO SCH ×2 (06:10→15:31)
[2018-04-08] MEDS: PANTOPRAZOLE 20MG TABLET PO SCH (06:10)
[2018-04-08] MEDS: CARVEDILOL 6.25 MG TABLET PO SCH ×3 (06:11→17:54)
[2018-04-08 07:01] VITALS: BP 149/79
[2018-04-08] MEDS ORDERED: POTASSIUM CHLORIDE 20 MEQ in SODIUM CHLORIDE 0.9% 250 ML IV ONE (07:30)
[2018-04-08] MEDS: GABAPENTIN 300 MG CAPSULE PO SCH (08:05)
[2018-04-08] MEDS: DEXAMETHASONE 1 MG TABLET PO SCH (08:05)
[2018-04-08] MEDS: LACTOBACILLUS CHEW TABLET PO SCH ×2 (08:05→17:39)
[2018-04-08] MEDS: LACTULOSE 20 GM/30 ML UDC PO SCH (08:06)
[2018-04-08] MEDS: SENNA/DOCUSATE TABLET PO SCH (08:18)
[2018-04-08] MEDS: LIDODERM 5% PATCH TD PRN (10:55)
[2018-04-08] MEDS ORDERED: CARV6.2512 PO (11:45)
[2018-04-08] MEDS ORDERED: LACT20SO13 PO (11:45)
[2018-04-08] MEDS ORDERED: MELA3TAB2 PO (11:45)
[2018-04-08] MEDS ORDERED: MIRT15TA4 PO (11:45)
[2018-04-08] MEDS ORDERED: LIDO5CRE19 TP (11:45)
[2018-04-08] MEDS ORDERED: TRAM50TA2 PO (11:45)
[2018-04-08] MEDS ORDERED: GABA300C10 PO (11:45)
[2018-04-08] MEDS ORDERED: AMOX1TAB61 PO (11:45)
[2018-04-08] MEDS ORDERED: PROC5TAB40 PO (11:45)
[2018-04-08 13:36] VITALS: BP 106/64
[2018-04-08] MEDS ORDERED: WARFARIN 2 MG TABLET PO-COUM ONE (18:00)
== END 2018-04-08 18:52 | disposition home health service (06) | DRG 177 ==
LOC: ED 13:41 → INTOOBSV 14:08 → OBSVTOIN 14:08 → EDIP 14:08 → 3NW 15:11
PROVIDERS: ADMIT Internal Medicine; ATTEND Internal Medicine
DX: J69.0 Pneumonitis due to inhalation of food and vomit (principal); J96.00 Acute respiratory failure, unspecified whether with hypoxia or hypercapnia; E43 Unspecified severe protein-calorie malnutrition; Z68.1 Body mass index [BMI] 19.9 or less, adult; B02.29 Other postherpetic nervous system involvement; D68.9 Coagulation defect, unspecified; K29.70 Gastritis, unspecified, without bleeding; Z71.3 Dietary counseling and surveillance; E78.5 Hyperlipidemia, unspecified; E86.0 Dehydration; F43.21 Adjustment disorder with depressed mood; G47.00 Insomnia, unspecified; I10 Essential (primary) hypertension; K59.00 Constipation, unspecified; K80.20 Calculus of gallbladder without cholecystitis without obstruction; R13.10 Dysphagia, unspecified; W18.39XA Other fall on same level, initial encounter; Y93.89 Activity, other specified; Y92.89 Other specified places as the place of occurrence of the external cause; Y99.8 Other external cause status; S09.90XA Unspecified injury of head, initial encounter; Z66 Do not resuscitate; Z79.01 Long term (current) use of anticoagulants; Z86.73 Personal history of transient ischemic attack (TIA), and cerebral infarction without residual deficits
CPT/HCPCS: 36415; 70450; 70553; 71045; 71275; 74022; 80048; 80053; 81001; 82040; 83690; 83735; 84100; 84443; 85025; 85379; 85610; 87086; 93005; 99285; A9585; G0378; J0295; J2405; J2550; J3480; Q0162; Q0169; Q9967; 92523-GN; C9113; J0360; J7030; J7050

== ENCOUNTER 2018-07-16 18:43 | Emergency (ER) | payer MEDICARE ==
[~2018-07-16] VITALS: Ht 162.6 cm; Wt 55.0 kg
[~2018-07-16 18:43] MED LIST changes: +AMOX1TAB61 PO; +CARV6.2512 PO; +DOCU100C33 PO; +GABA300C10 PO; +LACT20SO13 PO; +LIDO5CRE19 TP; +MELA3TAB2 PO; +MIRT15TA4 PO; +PROC5TAB40 PO; +TRAM50TA2 PO
[2018-07-16] MEDS ORDERED: LIDOCAINE-MPF 1%, 5ML INFIL ONE (19:30)
[2018-07-16] MEDS ORDERED: LIDOCAINE-MPF 1%, 5ML ONE (19:31)
--- NOTE | 2018-07-16 19:45 | NUR ---
THIS IS A 78 YO FEMALE WHO PRESENTS TO THE ER C/O MX SKIN TEARS TO LEFT WRIST, LEFT KNEE AND LEFT SKIN AND RIGHT WILSON AFTER A MGLF. PT DENIES DIZZINESS OR LOC. PT DENIES HITTING HEAD. PT AO X 4. APART FROM BRUISING AND SKIN TEARS, SKIN PWD. RESP EVEN AND UNLABORED. DAUGHTER IN LAW AT BEDSIDE. PT AWARE THAT WE ARE WAITING FOR ERMD EVAL. PT ON CONT BP AND O2 MONITORS. CALL LIGHT WITHIN REACH. WILL CONT TO MONITOR PT.
--- NOTE | 2018-07-16 20:00 | NUR ---
ERMDena SMILEY AT BEDSIDE FOR EVAL. PT AO X 4. SKIN PWD WITH MX SKIN TEARS AND BRUISING. DAUGHTER IN LAW AT BEDSIDE. CALL LIGHT WITHIN REACH. WILL CONT TO MONITOR PT.
[2018-07-16] MEDS ORDERED: BACITRACIN ZINC OINT 500U/GM, 0.9 GM ONE (20:25)
[2018-07-16] MEDS ORDERED: ACETAMINOPHEN 500 MG TABLET PO ONE (20:30)
[2018-07-16] MEDS ORDERED: DIPH,PERTUSS(ACELL),TET VAC/PF 0.5 ML IM-VACC ONE ×2 (20:30→21:10)
[2018-07-16 20:44] LABS: BASOPHILS # (AUTO) 0.02 x10^3/uL (0-0.1); BASOPHILS % (AUTO) 0 % (0-1); EOSINOPHILS # (AUTO) 0.07 x10^3/uL (0-0.4); EOSINOPHILS % (AUTO) 1 % (1-7); LYMPHOCYTES # (AUTO) 0.82 x10^3/uL (1-3.4); LYMPHOCYTES % (AUTO) 13 % (22-44); MD NO; MEAN CORPUSCULAR HEMOGLOBIN 27.8 pg (27.0-34.8); MEAN CORPUSCULAR HGB CONC 32.7 g/dL (32.4-35.8); MEAN CORPUSCULAR VOLUME 85.1 fL (80-100); MEAN PLATELET VOLUME 6.8 fL (7.4-10.4); MONOCYTES # (AUTO) 0.31 x10^3/uL (0.2-0.8); MONOCYTES % (AUTO) 5 % (2-9); NEUTROPHILS # (AUTO) 5.29 x10^3/uL (1.8-6.8); NEUTROPHILS % (AUTO) 81 % (42-75); PLATELET COUNT 301 x10^3/uL (130-400); RED BLOOD COUNT 4.04 x10^6/uL (3.82-5.3); RED CELL DISTRIBUTION WIDTH 17.2 % (9.6-15.2)
[2018-07-16 20:46] LABS: INTERNATIONAL NORMALIZED RATIO 2.45 (0.93-1.1); PROTHROMBIN TIME 24.9 Seconds (9.6-11.5)
[2018-07-16] MEDS ORDERED: ACETAMINOPHEN 500 MG TABLET ONE (21:10)
--- NOTE | 2018-07-16 21:15 | NUR ---
PT CURRENTLY RESTING ON [facility]. NAD NOTED. SKIN PWD, WOUNDS ARE CLEANED AND DRESSED. PT AO X 4. RESP EVEN AND UNLABORED. PT REFUSES OFFER OF PAIN MEDICATION AT THIS TIME. DAUGHTER IN LAW AT BEDSIDE. PT AND DAUGHTER IN LAW AWARE THAT WE ARE WAITING FOR LAB/IMAGING RESULTS. CALL LIGHT WITHIN REACH.
[2018-07-16 21:54] VITALS: BP 159/91
== END 2018-07-16 21:56 | disposition home or self-care (01) ==
LOC: ED 20:39
DX: S81.802A Unspecified open wound, left lower leg, initial encounter (principal); S81.801A Unspecified open wound, right lower leg, initial encounter; S81.002A Unspecified open wound, left knee, initial encounter; S61.502A Unspecified open wound of left wrist, initial encounter; I10 Essential (primary) hypertension; E78.5 Hyperlipidemia, unspecified; Z86.73 Personal history of transient ischemic attack (TIA), and cerebral infarction without residual deficits; W01.0XXA Fall on same level from slipping, tripping and stumbling without subsequent striking against object, initial encounter; Y93.01 Activity, walking, marching and hiking; Y92.410 Unspecified street and highway as the place of occurrence of the external cause; Y99.8 Other external cause status
CPT/HCPCS: 36415; 85025; 85610; 90471; 90715

== ENCOUNTER 2018-08-29 00:09 | Emergency (ER) | payer MEDICARE ==
[~2018-08-29] VITALS: Ht 160 cm; Wt 52.2 kg
[~2018-08-29 00:09] MED LIST changes: -LIDO5CRE19 TP; +LIDO5CRE26 TP
--- NOTE | 2018-08-29 00:20 | NUR ---
Pt here with daughter, notes injury to arm two weeks ago from dog, went to wound care yesterday, daughter noted significant bleeding late this evening. Pt takes coumadin
[2018-08-29] MEDS ORDERED: TRANEXAMIC ACID 100 MG/ML, 10ML ONE (00:29)
[2018-08-29] MEDS ORDERED: TRANEXAMIC ACID 100 MG/ML, 10ML TP ONE (00:30)
--- NOTE | 2018-08-29 00:45 | NUR ---
MD to bedside with KIARA, delightful lady, tolerating well. Daughter remains at bedside.
[2018-08-29 00:49] LABS: BASOPHILS # (AUTO) 0.04 x10^3/uL (0-0.1); BASOPHILS % (AUTO) 1 % (0-1); EOSINOPHILS # (AUTO) 0.03 x10^3/uL (0-0.4); EOSINOPHILS % (AUTO) 1 % (1-7); LYMPHOCYTES # (AUTO) 0.71 x10^3/uL (1-3.4); LYMPHOCYTES % (AUTO) 13 % (22-44); MD NO; MEAN CORPUSCULAR HEMOGLOBIN 27.8 pg (27.0-34.8); MEAN CORPUSCULAR HGB CONC 31.6 g/dL (32.4-35.8); MEAN CORPUSCULAR VOLUME 88.1 fL (80-100); MEAN PLATELET VOLUME 6.5 fL (7.4-10.4); MONOCYTES # (AUTO) 0.32 x10^3/uL (0.2-0.8); MONOCYTES % (AUTO) 6 % (2-9); NEUTROPHILS # (AUTO) 4.54 x10^3/uL (1.8-6.8); NEUTROPHILS % (AUTO) 80 % (42-75); PLATELET COUNT 426 x10^3/uL (130-400); RED BLOOD COUNT 4.74 x10^6/uL (3.82-5.3); RED CELL DISTRIBUTION WIDTH 17.3 % (9.6-15.2)
[2018-08-29 00:59] LABS: INTERNATIONAL NORMALIZED RATIO 1.07 (0.93-1.1); PROTHROMBIN TIME 11.2 Seconds (9.6-11.5)
[2018-08-29 01:30] VITALS: BP 156/90
== END 2018-08-29 01:53 | disposition home or self-care (01) ==
LOC: ED 00:33
DX: S51.811A Laceration without foreign body of right forearm, initial encounter (principal); E78.5 Hyperlipidemia, unspecified; I10 Essential (primary) hypertension; Z86.73 Personal history of transient ischemic attack (TIA), and cerebral infarction without residual deficits; X58.XXXA Exposure to other specified factors, initial encounter; Y93.89 Activity, other specified; Y92.009 Unspecified place in unspecified non-institutional (private) residence as the place of occurrence of the external cause; Y99.8 Other external cause status
CPT/HCPCS: 12001; 36415; 85025; 85610; 85730; 99283

== ENCOUNTER 2018-10-07 17:54 | Emergency (ER) | payer MEDICARE ==
[~2018-10-07] VITALS: Ht 162.6 cm; Wt 51.2 kg
[~2018-10-07 17:54] MED LIST changes: -MELA3TAB2 PO; +MELA3TAB56 PO; +MIRT-34 PO; -MIRT15TA4 PO
[2018-10-07 18:12] VITALS: BP 121/78
[2018-10-07] MEDS ORDERED: DIPH,PERTUSS(ACELL),TET VAC/PF 0.5 ML IM-VACC ONE ×2 (18:30→19:25)
== END 2018-10-07 19:40 | disposition home or self-care (01) ==
LOC: ED 19:34
DX: S81.802A Unspecified open wound, left lower leg, initial encounter (principal); I10 Essential (primary) hypertension; Z86.73 Personal history of transient ischemic attack (TIA), and cerebral infarction without residual deficits; W20.8XXA Other cause of strike by thrown, projected or falling object, initial encounter; Y93.89 Activity, other specified; Y92.009 Unspecified place in unspecified non-institutional (private) residence as the place of occurrence of the external cause; Y99.8 Other external cause status
CPT/HCPCS: 12032; 90471; 90715

== ENCOUNTER 2018-10-09 12:17 | Outpatient (CLI) | payer MEDICARE | END 2018-10-09 23:59 | disposition home or self-care (01) | LOC: LAB 12:17 | PROVIDERS: ATTEND Nurse Practitioner Family | DX: J44.9 Chronic obstructive pulmonary disease, unspecified (principal); R91.8 Other nonspecific abnormal finding of lung field | CPT/HCPCS: 87015; 87070; 87102; 87116; 87205; 87206 ==

== ENCOUNTER 2019-01-01 06:55 | Emergency (ER) | payer MEDICARE ==
[2019-01-01] VITALS (7 sets, daily range): BP systolic 129–191; BP diastolic 32–102
[~2019-01-01] VITALS: Ht 162.6 cm; Wt 52.0 kg
[2019-01-01] MEDS ORDERED: LIDOCAINE 1%-EPI 1:100K, 20ML ONE (07:14)
[2019-01-01] MEDS ORDERED: LIDOCAINE 2% VISCOUS 15 ML UDC ONE (07:15)
[2019-01-01] MEDS ORDERED: TRANEXAMIC ACID 100 MG/ML, 10ML TP ONE (07:30)
[2019-01-01] MEDS ORDERED: LIDOCAINE 1%-EPI 1:100K, 20ML INFIL ONE (07:30)
[2019-01-01] MEDS ORDERED: LIDOCAINE 2% VISCOUS 15 ML UDC MM ONE (07:30)
--- NOTE | 2019-01-01 07:35 | NUR ---
PAITENT IS RESTING IN BED. SON IS BEDSIDE. PAITENT IS SITTING FORWARD HOLDING NOSE OVER A EMESIS BAG.
[2019-01-01] MEDS ORDERED: MELA5TAB14 PO (07:46)
[2019-01-01] MEDS ORDERED: CETI10CA PO (07:46)
[2019-01-01] MEDS ORDERED: GABA600T7 PO (07:46)
[2019-01-01] MEDS ORDERED: TRANEXAMIC ACID 100 MG/ML, 10ML ONE (07:49)
[2019-01-01 07:54] LABS: BASOPHILS # (AUTO) 0.03 x10^3/uL (0-0.1); BASOPHILS % (AUTO) 1 % (0-1); EOSINOPHILS # (AUTO) 0.18 x10^3/uL (0-0.4); EOSINOPHILS % (AUTO) 5 % (1-7); LYMPHOCYTES # (AUTO) 1.03 x10^3/uL (1-3.4); LYMPHOCYTES % (AUTO) 25 % (22-44); MD NO; MEAN CORPUSCULAR HEMOGLOBIN 27.2 pg (27.0-34.8); MEAN CORPUSCULAR HGB CONC 32.1 g/dL (32.4-35.8); MEAN CORPUSCULAR VOLUME 84.7 fL (80-100); MEAN PLATELET VOLUME 6.7 fL (7.4-10.4); MONOCYTES # (AUTO) 0.43 x10^3/uL (0.2-0.8); MONOCYTES % (AUTO) 10 % (2-9); NEUTROPHILS # (AUTO) 2.47 x10^3/uL (1.8-6.8); NEUTROPHILS % (AUTO) 60 % (42-75); PLATELET COUNT 365 x10^3/uL (130-400); RED BLOOD COUNT 3.96 x10^6/uL (3.82-5.3); RED CELL DISTRIBUTION WIDTH 17.3 % (9.6-15.2)
[2019-01-01 08:01] LABS: INTERNATIONAL NORMALIZED RATIO 2.54 (0.93-1.1); PROTHROMBIN TIME 25.7 Seconds (9.6-11.5)
--- NOTE | 2019-01-01 08:12 | NUR ---
PATIENT SITTING UPRIGHT IN BED. BLOOD STILL DRAINING DOWN NOSE AND BACK OF THROAT. SON IS BEDSIDE. MEASURES TAKEN TO HELP COMFORT AND CONTROL BLEEDING. DR GREGG IS GOING TO CALL HEENT TO COME VISIT WITH PATIENT
--- NOTE | 2019-01-01 10:25 | NUR ---
BINH IS RECIEVING FFP. O2 SAT AT 88. ADMINISTERED 4L O2 VIA SIMPLE FACEMASK - O2 IMPROVED TO 100%.
[2019-01-01] MEDS ORDERED: LABETALOL 5MG/ML, 20ML IVPush ONE (12:00)
[2019-01-01] MEDS ORDERED: hydrALAzine 20 MG/ML, 1ML ONE (13:06)
--- NOTE | 2019-01-01 13:09 | NUR ---
Preceptor RN: ENT MD has been at bedside to evaluate pt, RN to administer antihypertensive medication prior to pt discharge
--- NOTE | 2019-01-01 13:20 | NUR ---
PATIENT BLOOD PRESSURE IMPROVED TO 135/68 UPON DISCHARGE.
[2019-01-01] MEDS ORDERED: hydrALAzine 20 MG/ML, 1ML IV ONE (13:30)
[2019-01-02] MEDS ORDERED: HYDR-3237 PO (11:01)
[2019-01-02] MEDS ORDERED: DULO30CA2 PO (11:01)
== END 2019-01-01 13:22 | disposition home or self-care (01) ==
LOC: ED 09:18
DX: R04.0 Epistaxis (principal); D68.9 Coagulation defect, unspecified; Z79.01 Long term (current) use of anticoagulants; I10 Essential (primary) hypertension; E78.5 Hyperlipidemia, unspecified; Z86.73 Personal history of transient ischemic attack (TIA), and cerebral infarction without residual deficits
CPT/HCPCS: 30901; 36415; 36430; 85025; 85610; 86850; 86900; 99285; J3490; P9017

== ENCOUNTER 2019-01-11 10:37 | Emergency (ER) | payer MEDICARE ==
[~2019-01-11] VITALS: Ht 162.6 cm; Wt 51.0 kg
[~2019-01-11 10:37] MED LIST changes: +CETI10CA PO; +DULO30CA2 PO; +GABA600T7 PO; +HYDR-3237 PO; +MELA5TAB14 PO
[2019-01-11] MEDS ORDERED: SODIUM CHLORIDE FLUSH 10ML SYR IVF ONE (11:00)
--- NOTE | 2019-01-11 11:07 | NUR ---
PT TO ROOM FROM TRIAGE, 78 YR OLD FEMALE BROUGHT IN BY DAUGHTER IN LAW WITH C/O GLV AT 0900, "I DISLOCATED MY ELBOW" RIGHT ELBOW PAIN. PT WITH DECREASED BP IN TRIAGE AND DECREASED OXYGENATION. PT NORMALLY ON 2L NC. ARRIVED ON RA. PT PLACED ON MONITORS, OXYGEN AT 6LNC. SATS INCREASED TO 98%, OXYGEN DECREASED TO 4L. PT WITH WOUNDS TO RIGHT LEG FROM A PRIOR FALL. DRESSINGS REMOVED BY DR STOUT.
[2019-01-11 11:33] LABS: ALBUMIN 3.1 g/dL (3.4-5.0); ANION GAP 5 mmol/L (5-15); CALCIUM 8.3 mg/dL (8.5-10.1); CHLORIDE 107 mmol/L (98-107); CREATININE 0.72 mg/dL (0.55-1.02)
[2019-01-11 11:34] LABS: MEAN CORPUSCULAR HEMOGLOBIN 26.5 pg (27.0-34.8); MEAN CORPUSCULAR HGB CONC 31.5 g/dL (32.4-35.8); MEAN CORPUSCULAR VOLUME 84.2 fL (80-100); MEAN PLATELET VOLUME 6.3 fL (7.4-10.4); PLATELET COUNT 567 x10^3/uL (130-400); RED BLOOD COUNT 3.48 x10^6/uL (3.82-5.3); RED CELL DISTRIBUTION WIDTH 17.9 % (9.6-15.2)
[2019-01-11 11:36] LABS: TROPONIN I < 0.015 ng/mL (0.000-0.045)
[2019-01-11 11:54] LABS: BASOPHILS # (AUTO) 0.04 x10^3/uL (0-0.1); BASOPHILS % (AUTO) 0 % (0-1); EOSINOPHILS # (AUTO) 0.11 x10^3/uL (0-0.4); EOSINOPHILS % (AUTO) 1 % (1-7); LYMPHOCYTES # (AUTO) 0.62 x10^3/uL (1-3.4); LYMPHOCYTES % (AUTO) 7 % (22-44); MD SCAN; MONOCYTES # (AUTO) 0.49 x10^3/uL (0.2-0.8); MONOCYTES % (AUTO) 5 % (2-9); NEUTROPHILS # (AUTO) 8.19 x10^3/uL (1.8-6.8); NEUTROPHILS % (AUTO) 87 % (42-75)
[2019-01-11] MEDS ORDERED: SODIUM CHLORIDE 0.9% 1,000ML IVBOLUS ONE (12:30)
--- NOTE | 2019-01-11 12:35 | NUR ---
PT MINI CATH'D FOR URINE SPECIMAN AFTER EXPLAINING PROCEDURE TO PT. PT PRATIMA WELL. NS INFUSING ORDERED. PT DOZING INTERMITTENTLY, AROUSES EASILY. WAITING FOR TRANSPORT TO RADIOLOGY.
--- NOTE | 2019-01-11 12:42 | NUR ---
REPORT TO ARJUN DREW.
--- NOTE | 2019-01-11 12:51 | NUR ---
ASSUMED CARE. PT RESTING COMFORTABLY
[2019-01-11 13:04] LABS: MICROSCOPIC NOT IND
[2019-01-11 13:08] LABS: CULTURE INDICATED? NO
--- NOTE | 2019-01-11 13:53 | NUR ---
SPOKE WITH INTEGRATION ASSISTANT / HUMA REGARDING FOLLOW UP WITH [facility] PT IS ESTABLISHED WITH BUT DID NOT SHOW UP TO PT'S HOME THIS WEEK. REQUEST BY DR STOUT. HUMA FOR FOLLOW UP WITH [facility].
[2019-01-11] MEDS ORDERED: MORPHINE SULFATE 4 MG/ML, 1ML IVPush PRN (14:00)
[2019-01-11] MEDS ORDERED: MORPHINE SULFATE 4 MG/ML, 1ML ONE (14:03)
--- NOTE | 2019-01-11 14:07 | NUR ---
MEDICATED FOR RIGHT ELBOW PAIN. FAMILY VISITING
--- NOTE | 2019-01-11 14:42 | NUR ---
TASK RN: MEDICAL SUPERINTENDENT AT BEDSIDE PLACING SLING NOW. PT RESTING ON LORI. NADN. TAMEZ.
--- NOTE | 2019-01-11 14:57 | NUR ---
TASK RN: RADIOLOGY AT BEDSIDE NOW.
[2019-01-11 16:21] VITALS: BP 139/68
--- NOTE | 2019-01-11 16:21 | NUR ---
AWAITING CT. FAMILY REMAINS AT BEDSIDE.
--- NOTE | 2019-01-11 16:27 | NUR ---
TO CT VIA [facility]
--- NOTE | 2019-01-11 17:39 | NUR ---
ASSISTED PT WITH DRESSING AND TO WHEELCHAIR. PT TO BATHROOM AND THEN TO DISCHARGE WINDOW.
== END 2019-01-11 17:41 | disposition home or self-care (01) ==
LOC: ED 12:05
DX: S52.124A Nondisplaced fracture of head of right radius, initial encounter for closed fracture (principal); S53.134A Medial dislocation of right ulnohumeral joint, initial encounter; J15.8 Pneumonia due to other specified bacteria; I10 Essential (primary) hypertension; E78.5 Hyperlipidemia, unspecified; Z86.73 Personal history of transient ischemic attack (TIA), and cerebral infarction without residual deficits; W18.30XA Fall on same level, unspecified, initial encounter; Y93.89 Activity, other specified; Y92.009 Unspecified place in unspecified non-institutional (private) residence as the place of occurrence of the external cause; Y99.8 Other external cause status
CPT/HCPCS: 24600; 36415; 70450; 71045; 72125; 73030; 73070; 73080; 80048; 81003; 82040; 84484; 85025; 93005; 96374; 99284; J2270; J7030

== ENCOUNTER 2019-02-02 14:23 | Inpatient (IN) | payer MEDICARE ==
[~2019-02-02] VITALS: Ht 162.6 cm; Wt 52.3 kg
[2019-02-02] MEDS ORDERED: MONT10TA6 PO (14:56)
[2019-02-02] MEDS ORDERED: iron (14:56)
[2019-02-02] MEDS ORDERED: ASPI-496 PO (14:56)
[2019-02-02] MEDS ORDERED: PROBIOTIC OTC (14:56)
--- NOTE | 2019-02-02 14:56 | NUR ---
pt to ed for more frequent falls. 2 falls today. abrasions to right forehead and right knee. cms intact. pt denies pain at this time. no blood thinners. denies abnormal neck or back pain. pt connected to monitors. vandana, /, all other vss on home o2 2LNC. piv established by task rn. no needs expressed. call light within reach. awaiting edmd assessment.
--- NOTE | 2019-02-02 15:02 | NUR ---
Dr. Elmore to bs for assessment. awaiting orders.
[2019-02-02 15:33] LABS: MEAN CORPUSCULAR VOLUME 83.9 fL (80-100); MEAN PLATELET VOLUME 6.5 fL (7.4-10.4); PLATELET COUNT 348 x10^3/uL (130-400); RED BLOOD COUNT 3.59 x10^6/uL (3.82-5.3)
[2019-02-02 15:45] LABS: ANION GAP 5 mmol/L (5-15); CALCIUM 8.4 mg/dL (8.5-10.1); CHLORIDE 106 mmol/L (98-107)
[2019-02-02] MEDS ORDERED: NEOSPORIN OINT. PKT 1 PACKET ONE (15:47)
[2019-02-02 15:50] LABS: ALANINE AMINOTRANSFERASE 13 U/L (12-78); ALKALINE PHOSPHATASE 134 U/L (45-117); BILIRUBIN,TOTAL 0.7 mg/dL (0.2-1.0); CREATININE 0.86 mg/dL (0.55-1.02); TOTAL PROTEIN 6.7 g/dL (6.4-8.2)
--- NOTE | 2019-02-02 15:54 | NUR ---
Dr. Elmore to bs to update on results and POC. awaiting dispo.
--- NOTE | 2019-02-02 15:58 | NUR ---
pt resting in room. vss. no needs expressed. tech to bs to dress abrasions. awaiting futrther orders. plant o admit.
[2019-02-02 16:19] LABS: MD YES
[2019-02-02 16:22] LABS: ANISOCYTOSIS 1+; BAND#(MANUAL) 4.03 x10^3/uL; BANDS%(MANUAL) 25 % (0-7); LYMPH#(MANUAL) 1.29 x10^3/uL (1-3.4); LYMPHS% (MANUAL) 8 % (22-44); MONOS#(MANUAL) 0.48 x10^3/uL (0.3-2.7); MONOS% (MANUAL) 3 % (2-9); SEGS% (MANUAL) 64 % (42-75)
[2019-02-02 16:23] LABS: <PLATELET ESTIMATE> ADEQUATE; <PLT MORPHOLOGY> NORMAL PLT MORPH; POLYCHROMASIA 1+
[2019-02-02] MEDS ORDERED: CEFTRIAXONE PMX 1GM/50ML 50 ML IV ONE (16:30)
[2019-02-02] MEDS ORDERED: AZITHROMYCIN 500 MG in SODIUM CHLORIDE 0.9% 250 ML IV ONE (16:30)
[2019-02-02] MEDS ORDERED: SODIUM CHLORIDE 0.9% 1,000 ML IV ONE (16:30)
--- NOTE | 2019-02-02 16:30 | NUR ---
Dr. Barclay to bs for assessment.
[2019-02-02] MEDS ORDERED: CEFTRIAXONE PMX 1GM/50ML 50 ML ONE (16:34)
--- NOTE | 2019-02-02 16:57 | NUR ---
PT RESTING IN ROOM. VSS. IVABX AND IVF STARTED AFTER VERIFIED [facility] THAT BC X2 COLLECTED (NO PINK WRISTBAND IN PLACE). PLAN TO ADMIT. AWAITING ROOM ASSIGNMENT.
[2019-02-02] MEDS ORDERED: ONDANSETRON 2MG/ML, 2ML IVPush PRN (17:00)
[2019-02-02] MEDS ORDERED: HYDROcodone/APAP 5/325 TABLET PO PRN (17:00)
[2019-02-02] MEDS ORDERED: IBUPROFEN 600 MG TABLET PO PRN (17:00)
[2019-02-02] MEDS ORDERED: MORPHINE SULFATE 4 MG/ML, 1ML IVPush PRN (17:00)
[2019-02-02] MEDS ORDERED: ONDANSETRON ODT 4 MG PO PRN (17:00)
--- NOTE | 2019-02-02 18:01 | NUR ---
BREAK RN: PT UPRIGHT ON GURNEY WITH EYES CLOSED, NAD WITH EQUAL CHEST RISE/FALL, NO NEEDS AT THIS TIME, CALL LIGHT WITHIN REACH.
--- NOTE | 2019-02-02 18:28 | NUR ---
Pt to be admitted to medical, room 374. Report called to Asha.
[2019-02-02] MEDS ORDERED: KETOROLAC 30 MG/1 ML IV PRN (19:03)
[2019-02-02 19:22] VITALS: BP 123/67
[2019-02-02] MEDS: AMPICILLIN/SULBACTAM 3 GM in SODIUM CHLORIDE 0.9% 100 ML IV SCH (19:55)
[2019-02-02] MEDS: D5%-0.45NACL+KCL 20MEQ 1,000 ML IV SCH (21:40)
[2019-02-02] MEDS: MIRTAZAPINE 15 MG TABLET PO SCH (21:42)
[2019-02-02] MEDS: MELATONIN 5 MG TABLET PO SCH (21:42)
[2019-02-02] MEDS: DULOXETINE 30 MG CAPSULE.DR PO SCH (21:42)
[2019-02-02] MEDS: LOVASTATIN 40 MG TABLET PO SCH (21:42)
[2019-02-02] MEDS: ACETAMINOPHEN 325 MG TABLET PO PRN (22:14)
[2019-02-03 00:06] VITALS: BP 123/67
[2019-02-03 01:55] VITALS: BP 133/75
[2019-02-03] MEDS: AMPICILLIN/SULBACTAM 3 GM in SODIUM CHLORIDE 0.9% 100 ML IV SCH ×3 (04:28→19:30)
[2019-02-03 05:40] LABS: ANION GAP 5 mmol/L (5-15); CALCIUM 8.3 mg/dL (8.5-10.1); CHLORIDE 111 mmol/L (98-107)
[2019-02-03 05:42] LABS: CREATININE 0.53 mg/dL (0.55-1.02)
[2019-02-03 05:43] LABS: BASOPHILS # (AUTO) 0.02 x10^3/uL (0-0.1); BASOPHILS % (AUTO) 0 % (0-1); EOSINOPHILS # (AUTO) 0.15 x10^3/uL (0-0.4); EOSINOPHILS % (AUTO) 1 % (1-7); LYMPHOCYTES % (AUTO) 9 % (22-44); MD NO; MEAN CORPUSCULAR HEMOGLOBIN 26.2 pg (27.0-34.8); MEAN CORPUSCULAR HGB CONC 31.2 g/dL (32.4-35.8); MEAN CORPUSCULAR VOLUME 83.8 fL (80-100); MEAN PLATELET VOLUME 6.8 fL (7.4-10.4); MONOCYTES % (AUTO) 6 % (2-9); NEUTROPHILS # (AUTO) 10.35 x10^3/uL (1.8-6.8); NEUTROPHILS % (AUTO) 84 % (42-75); PLATELET COUNT 310 x10^3/uL (130-400); RED BLOOD COUNT 3.33 x10^6/uL (3.82-5.3); RED CELL DISTRIBUTION WIDTH 18.4 % (9.6-15.2)
[2019-02-03 07:09] VITALS: BP 187/82
[2019-02-03] MEDS: DEXAMETHASONE 1 MG TABLET PO SCH (07:56)
[2019-02-03] MEDS: MONTELUKAST 10 MG TABLET PO SCH (07:56)
[2019-02-03] MEDS: ASPIRIN 81 MG TABLET EC PO SCH (07:56)
[2019-02-03] MEDS: GABAPENTIN 300 MG CAPSULE PO SCH (07:56)
[2019-02-03] MEDS: CETIRIZINE 10 MG TABLET PO SCH (07:56)
[2019-02-03] MEDS: PANTOPRAZOLE 20MG TABLET PO SCH (07:56)
[2019-02-03 09:00] LABS: CLOSTRIDIUM DIFFICILE ANTIGEN NEGATIVE; CLOSTRIDIUM DIFFICILE TOXIN NEGATIVE (Negative)
[2019-02-03] MEDS ORDERED: DOCUSATE 100 MG CAPSULE PO PRN (09:00)
[2019-02-03 12:46] VITALS: BP 130/76
[2019-02-03] MEDS: AZITHROMYCIN 500 MG in SODIUM CHLORIDE 0.9% 250 ML IV SCH (13:14)
[2019-02-03] MEDS: D5%-0.45NACL+KCL 20MEQ 1,000 ML IV SCH (14:45)
[2019-02-03 18:59] VITALS: BP 201/96
[2019-02-03] MEDS ORDERED: hydrALAzine 20 MG/ML, 1ML IV ONE (19:30)
[2019-02-03 20:26] VITALS: BP 155/83
[2019-02-03] MEDS: ACETAMINOPHEN 325 MG TABLET PO PRN (21:57)
[2019-02-03] MEDS: MELATONIN 5 MG TABLET PO SCH (21:57)
[2019-02-03] MEDS: LOVASTATIN 40 MG TABLET PO SCH (21:57)
[2019-02-03] MEDS: CARVEDILOL 6.25 MG TABLET PO SCH (21:57)
[2019-02-03] MEDS: DULOXETINE 30 MG CAPSULE.DR PO SCH (21:57)
[2019-02-03] MEDS: MIRTAZAPINE 15 MG TABLET PO SCH (21:57)
[2019-02-04 01:23] VITALS: BP 153/75
[2019-02-04] MEDS: AMPICILLIN/SULBACTAM 3 GM in SODIUM CHLORIDE 0.9% 100 ML IV SCH ×3 (03:51→19:59)
[2019-02-04] MEDS: ACETAMINOPHEN 325 MG TABLET PO PRN ×2 (05:55→21:46)
[2019-02-04 06:00] VITALS: BP 166/101
[2019-02-04 06:50] LABS: BASOPHILS # (AUTO) 0.02 x10^3/uL (0-0.1); BASOPHILS % (AUTO) 0 % (0-1); EOSINOPHILS # (AUTO) 0.22 x10^3/uL (0-0.4); EOSINOPHILS % (AUTO) 3 % (1-7); LYMPHOCYTES # (AUTO) 0.82 x10^3/uL (1-3.4); LYMPHOCYTES % (AUTO) 11 % (22-44); MD NO; MEAN CORPUSCULAR HEMOGLOBIN 26.4 pg (27.0-34.8); MEAN CORPUSCULAR HGB CONC 31.6 g/dL (32.4-35.8); MEAN CORPUSCULAR VOLUME 83.5 fL (80-100); MEAN PLATELET VOLUME 6.8 fL (7.4-10.4); MONOCYTES # (AUTO) 0.55 x10^3/uL (0.2-0.8); MONOCYTES % (AUTO) 8 % (2-9); NEUTROPHILS # (AUTO) 5.75 x10^3/uL (1.8-6.8); NEUTROPHILS % (AUTO) 78 % (42-75); PLATELET COUNT 318 x10^3/uL (130-400); RED BLOOD COUNT 3.31 x10^6/uL (3.82-5.3)
[2019-02-04 07:00] LABS: ANION GAP 3 mmol/L (5-15); CALCIUM 8.6 mg/dL (8.5-10.1); CHLORIDE 108 mmol/L (98-107); CREATININE 0.52 mg/dL (0.55-1.02)
[2019-02-04] MEDS: PANTOPRAZOLE 20MG TABLET PO SCH (09:40)
[2019-02-04] MEDS: CETIRIZINE 10 MG TABLET PO SCH (09:40)
[2019-02-04] MEDS: CARVEDILOL 6.25 MG TABLET PO SCH ×2 (09:40→20:06)
[2019-02-04] MEDS: DEXAMETHASONE 1 MG TABLET PO SCH (09:40)
[2019-02-04] MEDS: ASPIRIN 81 MG TABLET EC PO SCH (09:40)
[2019-02-04] MEDS: MONTELUKAST 10 MG TABLET PO SCH (09:40)
[2019-02-04] MEDS: D5%-0.45NACL+KCL 20MEQ 1,000 ML IV SCH (09:40)
[2019-02-04] MEDS: GABAPENTIN 300 MG CAPSULE PO SCH (09:41)
[2019-02-04] MEDS ORDERED: POTASSIUM CHLORIDE 20 MEQ TAB.ER.PRT PO ONE (12:30)
[2019-02-04 13:10] VITALS: BP 148/82
[2019-02-04] MEDS: AZITHROMYCIN 500 MG in SODIUM CHLORIDE 0.9% 250 ML IV SCH (14:44)
[2019-02-04 19:33] VITALS: BP 175/100
[2019-02-04] MEDS: MIRTAZAPINE 15 MG TABLET PO SCH (20:06)
[2019-02-04] MEDS: DULOXETINE 30 MG CAPSULE.DR PO SCH (20:06)
[2019-02-04] MEDS: LOVASTATIN 40 MG TABLET PO SCH (20:06)
[2019-02-04] MEDS: MELATONIN 5 MG TABLET PO SCH (20:06)
[2019-02-05 01:12] VITALS: BP 174/92
[2019-02-05] MEDS ORDERED: hydrALAzine 20 MG/ML, 1ML IV PRN (01:30)
[2019-02-05] MEDS: AMPICILLIN/SULBACTAM 3 GM in SODIUM CHLORIDE 0.9% 100 ML IV SCH ×3 (03:33→20:49)
[2019-02-05 03:35] VITALS: BP 145/87
[2019-02-05 06:05] LABS: ANION GAP 6 mmol/L (5-15); CALCIUM 8.6 mg/dL (8.5-10.1); CHLORIDE 108 mmol/L (98-107); CREATININE 0.47 mg/dL (0.55-1.02)
[2019-02-05 08:00] VITALS: BP 135/76
[2019-02-05] MEDS: ASPIRIN 81 MG TABLET EC PO SCH (09:36)
[2019-02-05] MEDS: CETIRIZINE 10 MG TABLET PO SCH (09:36)
[2019-02-05] MEDS: CARVEDILOL 6.25 MG TABLET PO SCH ×2 (09:36→20:49)
[2019-02-05] MEDS: DEXAMETHASONE 1 MG TABLET PO SCH (09:36)
[2019-02-05] MEDS: MONTELUKAST 10 MG TABLET PO SCH (09:36)
[2019-02-05] MEDS: GABAPENTIN 300 MG CAPSULE PO SCH (09:36)
[2019-02-05] MEDS: PANTOPRAZOLE 20MG TABLET PO SCH (09:36)
[2019-02-05] MEDS: AZITHROMYCIN 500 MG in SODIUM CHLORIDE 0.9% 250 ML IV SCH (13:28)
[2019-02-05 14:05] VITALS: BP 88/54
[2019-02-05 16:12] LABS: BASOPHILS # (AUTO) 0.02 x10^3/uL (0-0.1); BASOPHILS % (AUTO) 0 % (0-1); EOSINOPHILS # (AUTO) 0.17 x10^3/uL (0-0.4); EOSINOPHILS % (AUTO) 3 % (1-7); LYMPHOCYTES # (AUTO) 0.69 x10^3/uL (1-3.4); LYMPHOCYTES % (AUTO) 12 % (22-44); MD NO; MEAN CORPUSCULAR HEMOGLOBIN 26.2 pg (27.0-34.8); MEAN CORPUSCULAR HGB CONC 30.8 g/dL (32.4-35.8); MEAN CORPUSCULAR VOLUME 85.1 fL (80-100); MEAN PLATELET VOLUME 7.1 fL (7.4-10.4); MONOCYTES # (AUTO) 0.25 x10^3/uL (0.2-0.8); MONOCYTES % (AUTO) 4 % (2-9); NEUTROPHILS # (AUTO) 4.57 x10^3/uL (1.8-6.8); NEUTROPHILS % (AUTO) 80 % (42-75); PLATELET COUNT 421 x10^3/uL (130-400); RED BLOOD COUNT 3.72 x10^6/uL (3.82-5.3); RED CELL DISTRIBUTION WIDTH 18.7 % (9.6-15.2)
[2019-02-05 16:23] LABS: ANION GAP 7 mmol/L (5-15); CALCIUM 8.4 mg/dL (8.5-10.1); CHLORIDE 106 mmol/L (98-107); CREATININE 0.63 mg/dL (0.55-1.02)
[2019-02-05 19:23] VITALS: BP 128/77
[2019-02-05] MEDS: DULOXETINE 30 MG CAPSULE.DR PO SCH (20:49)
[2019-02-05] MEDS: LOVASTATIN 40 MG TABLET PO SCH (20:49)
[2019-02-05] MEDS: MELATONIN 5 MG TABLET PO SCH (20:49)
[2019-02-05] MEDS: MIRTAZAPINE 15 MG TABLET PO SCH (20:49)
[2019-02-06 00:54] VITALS: BP 155/83
[2019-02-06] MEDS: AMPICILLIN/SULBACTAM 3 GM in SODIUM CHLORIDE 0.9% 100 ML IV SCH ×2 (04:35→12:00)
[2019-02-06] MEDS: DEXAMETHASONE 1 MG TABLET PO SCH (07:56)
[2019-02-06] MEDS: CETIRIZINE 10 MG TABLET PO SCH (07:56)
[2019-02-06] MEDS: GABAPENTIN 300 MG CAPSULE PO SCH (07:56)
[2019-02-06] MEDS: CARVEDILOL 6.25 MG TABLET PO SCH (07:57)
[2019-02-06] MEDS: ASPIRIN 81 MG TABLET EC PO SCH (07:57)
[2019-02-06] MEDS: PANTOPRAZOLE 20MG TABLET PO SCH (07:57)
[2019-02-06] MEDS: MONTELUKAST 10 MG TABLET PO SCH (07:57)
[2019-02-06 08:59] VITALS: BP 134/72
[2019-02-06] MEDS ORDERED: AMOX1TAB64 PO (11:15)
[2019-02-06] MEDS ORDERED: AZIT500T PO (11:15)
== END 2019-02-06 13:41 | disposition home health service (06) | DRG 871 ==
LOC: ED 16:21 → EDIP 16:22 → ED 16:32 → 3N 18:41 → DCLOUNGE 02-06 13:25
PROVIDERS: ADMIT Internal Medicine; ATTEND Internal Medicine
DX: A41.9 Sepsis, unspecified organism (principal); J69.0 Pneumonitis due to inhalation of food and vomit; J96.11 Chronic respiratory failure with hypoxia; F11.20 Opioid dependence, uncomplicated; D68.69 Other thrombophilia; E46 Unspecified protein-calorie malnutrition; J98.11 Atelectasis; Z68.1 Body mass index [BMI] 19.9 or less, adult; D50.9 Iron deficiency anemia, unspecified; E78.5 Hyperlipidemia, unspecified; G83.9 Paralytic syndrome, unspecified; I10 Essential (primary) hypertension; R04.0 Epistaxis; R13.10 Dysphagia, unspecified; R29.6 Repeated falls; Z92.3 Personal history of irradiation; Z86.73 Personal history of transient ischemic attack (TIA), and cerebral infarction without residual deficits; Z79.82 Long term (current) use of aspirin; Z80.3 Family history of malignant neoplasm of breast; Z79.01 Long term (current) use of anticoagulants; Z79.52 Long term (current) use of systemic steroids; Z66 Do not resuscitate; W18.30XA Fall on same level, unspecified, initial encounter; Y93.89 Activity, other specified; Y92.89 Other specified places as the place of occurrence of the external cause; Y99.8 Other external cause status
CPT/HCPCS: 36415; 70450; 71045; 74230; 80048; 80053; 83605; 84145; 85025; 87040; 87324; 93005; G0378; J0295; J0456; J0696; J2405; J0360; J3480; J7030; J7050

== ENCOUNTER 2020-08-26 13:48 | Outpatient (CLI) | payer MEDICARE ==
[~2020-08-26 13:48] MED LIST changes: +AMLO-150 PO; +AMLO2.5T2 PO; +AMOX1TAB64 PO; +APIX5TAB PO; +ASPI-496 PO; +AZIT500T PO; +BISA10SU4 PR; +CEFD300C37 PO; +FERR325T5 PO; +FLUO10CA13 PO; +GABA300C PO; +MELA3TAB31 PO; -MELA3TAB56 PO; +MIRT-14 PO; -MIRT-34 PO; +MONT10TA6 PO; +OXYC5CAP2 PO; -PANT20TA3 PO; +PANT20TA4 PO; +PANT40TA6 PO; +POLY17PO5 PO; +PREG25CA PO; +PROBIOTIC OTC; -WARF2.5T PO; +WARF2.5T2 PO; +iron
== END 2020-08-26 23:59 | disposition home or self-care (01) ==
LOC: CFH 13:48
PROVIDERS: ATTEND Student in an Organized Health Care Education/Training Program
DX: I08.0 Rheumatic disorders of both mitral and aortic valves (principal); I11.9 Hypertensive heart disease without heart failure
CPT/HCPCS: 93306